=== PATIENT | female | born 1960 | race Caucasian/White ===

== ENCOUNTER 2018-08-20 00:33 | Outpatient (CLI) | payer BC, SELFPAY ==
--- NOTE | 2018-08-20 16:30 | DI.MAMMO_ITS ---
SYMPTOM/DIAGNOSIS: SCREENING, Z12.31 MAMMOGRAMS: Mammograms were interpreted according to the usual protocol including computer analysis with CAD system, tomosynthesis and C view imaging. Comparison is made with prior examinations. Breast density, Category C. No suspicious masses or microcalcifications are seen. There is no definite evidence of malignancy. IMPRESSION: Negative mammogram. Routine screening is recommended. Category 1. MQSA ASSESSMENT OF FINDINGS: Negative. Category 1. Patient will receive a letter notifying them of these results. Bi-RADS category C. The breasts are heterogeneously dense, which may obscure small masses.
== END 2018-08-20 00:53 ==
PROVIDERS: PCP Internal Medicine; Visit Provider Nurse Practitioner Family
DX: Z12.31 Encounter for screening mammogram for malignant neoplasm of breast (principal)
CPT/HCPCS: 77063; 77067

== ENCOUNTER 2019-07-23 10:16 | Outpatient (REF) | payer BC, SELFPAY ==
--- NOTE | 2019-07-23 10:00 | PAPFT_PTH ---
PATIENT: Otilia Mayen LOC: [facility] U#:[id number] AGE/SX: 58/F ROOM: RE07/23/[address]: JAZZ Chan : 1960 BED: DIS: 07/23/2019 SPEC #: [id number] RECD: 07/23/19 12:48 STATUS: JOHNBecki REQ #: [id number] ANDREA: 07/23/19 10:[address]: Anu Guzman DEPT: [facility] Cytology RECD BY: Virginia Meza ENTERED: 07/23/19 12:49 SP TYPE: PAPFT OTHR DR: Alan Franz Tissues: 1 - CX/ENDOCX FOR PAP SMEARS Procedures: PAP THIN PREP/UVM Screening HPV DNA PROBE Comments: [id number]
== END 2019-07-23 10:36 ==
LOC: LBN 10:16
PROVIDERS: PCP Internal Medicine; Visit Provider Nurse Practitioner Family
DX: Z12.4 Encounter for screening for malignant neoplasm of cervix (principal); Z11.51 Encounter for screening for human papillomavirus (HPV)
CPT/HCPCS: 88142; 87624

== ENCOUNTER 2020-10-15 02:04 | Outpatient (CLI) | payer BC, SELFPAY ==
--- NOTE | 2020-10-15 15:30 | DI.MAMMO_ITS ---
Exam(s) MAMMO SCREENING EXAM: MAMMO SCREENING CLINICAL HISTORY: screening TECHNIQUE: Bilateral full field digital CC and MLO mammographic images were obtained with 3D tomosyn thesis and utilizing computer aided detection (CAD). COMPARISON: Available for comparison. FINDINGS: Masses/Architectural Distortion: None seen. Microcalcifications: No suspicious pleomorphic-type are seen. Skin Thickening/Nipple Retraction: None. IMPRESSION: 1. No significant interval change with no specific features of malignancy noted. 2. Unless there is more urgent need, screening mammography is recommended, as per [employer] guidelines. BI-RADS Category 1 - Negative Breast Density - Category C - Heterogeneously dense Breast density category C or D implies that the patient has dense breast tissue. Dense breast tissue is very common and is not abnormal but dense breast tissue can make it harder to find cancer on a ma mmogram. Also, dense breast tissue may increase their breast cancer risk. This information about the result of the mammogram report was provided to the patient to raise their awareness. Use this report when you speak with the patient about their risks for breast cancer, which includes their family hist ory. At that time, you may recommend for more screening tests (Ultrasound or MRI) as they might be us eful based on their risk. A negative radiographic report should not delay biopsy if a dominant or clinically suspicious mass is present. Up to ten percent of cancers are not identified on mammography. A negative report may reinforce clinical impression. Adenosis and dense breasts may obscure an underlying neoplasm. False positive reports average 6 to 10%. Patient will receive a letter notifying them of these results.
== END 2020-10-15 02:24 ==
PROVIDERS: PCP Internal Medicine; Visit Provider Nurse Practitioner Family
DX: Z12.31 Encounter for screening mammogram for malignant neoplasm of breast (principal)
CPT/HCPCS: 77063; 77067

== ENCOUNTER → 2022-01-07 | Outpatient (CLI) | payer BC, SELFPAY ==
--- OUTSIDE RECORDS SUMMARY | 2022-01-07 00:02 | XMS_ITS | Encounter Summary ---
:1960 Author Organization [facility] Address [address] [place] [address] Care Team Providers Name Role Phone Anu Guzman ARTIFICIAL LEATHER CALENDER OPERATOR Primary Care Provider Reason for Visit Reason Comments Follow-up FBSE, H/O BCC Encounter Details Date Type Department Care Team Description 10/24/2018 Office Visit [facility] Lila Lambert, Hist ory of basal cell Dermatology - Main MD carcinoma (Primary [place] [address]) [address] [place] [address] [address] [place] [address] Social History Tobacco Use Types Packs/Day Years Used Date Never Smoker Smokeless Tobacco: Never Used Sex Assigned at Date Recorded Female 10/25/2021 12:58 EDT documented as of this encounter Progress Notes Lila Lambert MD, MD - 10/24/2018 1100 EDT DERMATOLOGY OUTPATIENT CLINIC NOTE Chief Complaint Patient presents with ??? Follow-up FBSE, H/O BCC Dermatologic History: 1. Infiltrative BCC, right lower eyelid, s/p Mohs 07/2011 with Paul Cervantes MD, with repair by Salome Gilliam MD 2. Benign Nevi 3. Moderately atypical nevus s/p bx 10/04/16 4. BCC right back, out with biopsy 10/04/16 SUBJECTIVE Ms. Mayen is a 58 y.o. female who presents for follow-up for a skin check. She has been doing well since her last visit. Nothing on the skin has been bleeding or changing. The patient does try to be reasonable about sun exposure. For full Medical, Surgical, Family, and Social histories, please see the History section of this encounter in the electronic chart which I have personally reviewed. For Review of Systems, Medications and Allergies, please see those sections of this encounter in theelectronic chart which I have also reviewed. She has a current medication list which includes the following prescription(s): multivitamins with minerals. She has No Known Allergies. OBJECTIVE VS: There were no vitals taken for this visit. Ms. Mayen is healthy, well developed, well-nourished and in no acute distress female sitting on the examination table with a normal affect. She is alert and oriented to person, place and time. She has Pritchard type II skin. Cutaneous full body examination including the hair, scalp, face, eyelids, lips, neck, chest, back, abdomen, all four extremities, hands, feet, digits and nails was performed. - On the back she has well healed scars - On the trunk and extremities the patient has very evenly pigmented peterson and medium brown macules and low papules with preserved network of pigmentation. IMPRESSION: 1. History of moderately atypical nevus of left mid back 2. History of basal cell carcinoma of right mid back and right lower eyelid, without evidence of recurrence 3. Benign appearing nevi PLAN: 1. Reassurance about the benign nature of the exam. We will follow the spots on the nose and cheeks closely. Removal if change. 2. The nature of skin cancers and sun-induced photo-aging was discussed. Sun avoidance, protective clothing, and the use of 30-SPF sunscreens is advised. The ABCDEs and ugly duckling rule of melanomascreening were reviewed with the patient. Patient was instructed to observe closely for any skin damage/changes, and call if such occurs. Otherwise, to follow-up in 1 year for repeat full-body skin exam. She will follow-up as outlined above or in the interim should concerns arise. Lila Lambert MD 10/24/2018 Ramandeep Flood - 10/24/2018 1100 EDT Review of Systems Constitutional: Negative for fatigue, fever and unexpected weight change. HENT: Negative for mouth sores. Eyes: Negative for pain. Respiratory: Negative for cough and shortness of breath. Cardiovascular: Negative for chest pain and palpitations. Gastrointestinal: Negative for abdominal pain, blood in stool, constipation, diarrhea, nausea and vomiting. Genitourinary: Negative for dysuria, frequency and hematuria. Musculoskeletal: Negative for myalgias, joint swelling, arthralgias and muscle stiffness in the morning. Skin: Negative for rash. Neurological: Negative for numbness and headaches. Endo/Heme/Allergies: Does not bruise/bleed easily. Psychiatric/Behavioral: Negative for sleep disturbance. The patient is not nervous/anxious. Ramandeep Harrell 10/24/2018 11:20 documented in this encounter Plan of Treatment Upcoming Encounters Date Type Specialty Care Team Description 10/28/2022 Office Visit Dermatology Bk Anton MD [address] [place] [address] [address] [place], [place] [address] (Wo rk) documented as of this encounter Visit Diagnoses Diagnosis History of basal cell carcinoma - Primar y Personal history of other malignant neop lasm of skin documented in this encounter Care Teams Registered Associate Relationship Specialty Start Date End Date Anu Guzman FNP PCP - General 01/19/[address] [place] [address] [place] [address] documented as of this encounter
--- OUTSIDE RECORDS SUMMARY | 2022-01-07 00:02 | XMS_ITS | Encounter Summary ---
:1960 Author Organization [facility] Address [address] [place] [address] Care Team Providers Name Role Phone Unavailable Primary Care Provider Unavailable Encounter Details Date Type Department Care Team Description 04/26/2006 Results Only [facility] - Clary German, Chr istopher, conversion DO [address] [address] [facility] [address] [place], [place] [id number] [place] [address] (Wo rk) Social History Tobacco Use Types Packs/Day Years Used Date Never Assessed Sex Assigned at Date Recorded Female 10/25/2021 12:58 EDT documented as of this encounter Plan of Treatment Upcoming Encounters Date Type Specialty Care Team Description 10/28/2022 Office Visit Dermatology Bk Anton MD [address] [facility], [facility] Leila, [address] [place], [place] [address] (Wo rk) documented as of this encounter Procedures Procedure Name Priority Date/Time Associated Diagnosis Comme nts SURGICAL PATHOLOGY Routine 04/26/2006 0:00 EST Re sults for this procedure are i n the results section. documented in this encounter Results SURGICAL PATHOLOGY (04/26/2006 0:00 EST) Pathology Report: SURGICAL PATHOLOGY REPORT [facility] Reports generated via electronic interface contain isamar ginal data; LAB however they are lacking the format of the original re port. Caution should be taken when reading/interpreting unfo rmatted reports. Name: ? JUANITA EDUARDO ? Accession #: ? [id number] ? : ? 1960 (Age: 45) ??F ? Collect Date: ? 04/26/2006 ? Location: ? [facility] ? Receive Date: ? 006 ? Provider: CLARA GERMAN DO Copy to: CELESTINO CONTRERAS MD ? Final Pathologic Diagnosis: ? Breast, right, ultrasound-guided needle core bi opsy: 1. ?Fibrocystic changes including: ? - Fibroadenomatoid nodule ? - Focal microcyst formation. - Dense interlobular fibrosis. Document reviewed and electronically signed by: Migdalia Cruz MD Report ??Date: 04/28/2006 15:41 By the signature above, the attending physician certif ies that he/she has personally conducted a gross and/or microscopic examin ation of the described specimens and rendered or confirmed the above diagnosi s. Specimen(s) Received: ? Ultrasound guided core biopsy right breast Clinical History: ? Mass by U/S 3 o'clock position Gross Description: ? Received in formalin labelled Eduardo and Rt breast bx are nine peterson-yellow linear soft tissu e fragments measuring 0.1 cm in diameter and ranging in length from 2.0 to 0.2 cm. ??The specimen is entirely submitted as (A1) to (A3). ??(Dr. Barlow-)/[facility] End of Report Specimen Performing Organization Address City/State/ZIP Code Phon e Number [facility] [address] [place] [address] SERVICES [facility] [address] [place] [address] documented in this encounter Visit Diagnoses Not on filedocumented in this encounter
--- OUTSIDE RECORDS SUMMARY | 2022-01-07 00:02 | XMS_ITS | Encounter Summary ---
:1960 Author Organization [facility] Address [address] [place] [address] Care Team Providers Name Role Phone Unavailable Primary Care Provider Unavailable Encounter Details Date Type Department Care Team Description 11/05/2001 Results Only [facility] - Carlos Boggs MD conversion [address] [place], [place] [address] Social History Tobacco Use Types Packs/Day Years Used Date Never Assessed Sex Assigned at Date Recorded Female 10/25/2021 12:58 EDT documented as of this encounter Plan of Treatment Upcoming Encounters Date Type Specialty Care Team Description 10/28/2022 Office Visit Dermatology Bk Anton MD [address] [facility], [facility], [address] [place], [place] [address] (Wo rk) documented as of this encounter Procedures Procedure Name Priority Date/Time Associated Diagnosis Comme nts CYTOPATHOLOGY Routine 11/05/2001 0:00 EDT Results for this procedure are i n the results section . documented in this encounter Results CYTOPATHOLOGY (11/05/2001 0:00 EDT) Pathology Report: CYTOPATHOLOGY REPORT [facility] Reports generated via electronic interface contain isamar ginal data; however they are lacking the format of the original re port. Caution should be taken when reading/interpreting unfo rmatted reports. Name: ? JUANITA EDUARDO ? Accession #: ? [id number] : ? 1960 (Age: 41) ??F ?Collect Date: ? 10/14 Location: ? [facility] ? Receive Date : ? 11/07/2001 Provider: ?CARLOS CONTRERAS MD Copy to: ? Specimen/Source: ?ThinPrep Pap Test, Cervix/ Endocervix Last Menstrual Period: ? Menstrual/ Status: ? Amenorrhea Hormonal/Contraceptive Status: ? Control Pills: Ortho Novum ? SPECIMEN ADEQUACY ? Satisfactory for Evaluation - transformation zone component present GENERAL CATEGORIZATION ? Negative for Intraepithelial Lesion or Malignan cy ? Document reviewed and electronically signed by: ? Amanda Jaime, ??SCT(ASCP) ? Report Date: ??11/09/2001 08:09 End of Report Specimen Performing Organization Address City/State/ZIP Code Phon e Number [facility] [address] [place] [address] SERVICES [facility] [address] [place] [address] documented in this encounter Visit Diagnoses Not on filedocumented in this encounter
--- OUTSIDE RECORDS SUMMARY | 2022-01-07 00:02 | XMS_ITS | Encounter Summary ---
:1960 Author Organization [facility] Address [address] [place] [address] Care Team Providers Name Role Phone Unavailable Primary Care Provider Unavailable Encounter Details Date Type Department Care Team Description 10/27/2003 Results Only [facility] - Carlos Boggs MD conversion [address] [place], [place] [address] Social History Tobacco Use Types Packs/Day Years Used Date Never Assessed Sex Assigned at Date Recorded Female 10/25/2021 12:58 EDT documented as of this encounter Plan of Treatment Upcoming Encounters Date Type Specialty Care Team Description 10/28/2022 Office Visit Dermatology Bk Anton MD 111 [facility], [facility], [address] [place], [place] [address] (Wo rk) documented as of this encounter Procedures Procedure Name Priority Date/Time Associated Diagnosis Comme nts CYTOPATHOLOGY Routine 10/27/2003 0:00 EDT Results for this procedure are i n the results section . documented in this encounter Results CYTOPATHOLOGY (10/27/2003 0:00 EDT) Pathology Report: CYTOPATHOLOGY REPORT [facility] Reports generated via electronic interface contain isamar ginal data; however they are lacking the format of the original re port. Caution should be taken when reading/interpreting unfo rmatted reports. Name: ? JUANTIA EDUARDO ? Accession #: ? [id number] : ? 1960 (Age: 43) ??F ?Collect Date: ? 10/13 Location: ? [facility] ? Receive Date : ? 10/29/2003 Provider: ?CARLOS CONTRERAS MD Copy to: ? Specimen/Source: ?ThinPrep Pap Test, Cervix/ Endocervix Last Menstrual Period: ? 07/16/03 ? SPECIMEN ADEQUACY ? Satisfactory for Evaluation - transformation zone component present GENERAL CATEGORIZATION ? Negative for Intraepithelial Lesion or Malignan cy ? Document reviewed and electronically signed by: ? Emily Rutherford, SCT(ASCP) ? Report Date: ??10/31/2003 10:00 End of Report Specimen Performing Organization Address City/State/ZIP Code Phon e Number [facility] [address] [place] [address] [facility] [address] [place] [address] documented in this encounter Visit Diagnoses Not on filedocumented in this encounter
--- OUTSIDE RECORDS SUMMARY | 2022-01-07 00:02 | XMS_ITS | Encounter Summary ---
:1960 Author Organization [facility] Address [address] [place] [address] Care Team Providers Name Role Phone Anu Guzman [facility] Primary Care Provider Encounter Details Date Type Department Care Team Description 03/18/2014 Results Only [facility] Terrance Guzman, EDITING CLERK Laboratory Services - [address] [facility] [facility] [address] [address] [place], [place] [id number] [phone] Social History Tobacco Use Types Packs/Day Years Used Date Never Smoker Sex Assigned at Date Recorded Female 10/25/2021 12:58 EDT documented as of this encounter Plan of Treatment Upcoming Encounters Date Type Specialty Care Team Description 10/28/2022 Office Visit Dermatology Bk Anton MD 111 [facility], [place] [facility], [address] [place], [place] [address] (Wo rk) documented as of this encounter Procedures Procedure Name Priority Date/Time Associated Diagnosis Comme nts PAP TEST- RESULT Routine 03/18/2014 0:00 EST Resu lts for this ONLY procedure are i n the results section. documented in this encounter Results PAP TEST- RESULT ONLY (03/18/2014 0:00 EST) Pathology Report: CYTOPATHOLOGY REPORT [facility] Reports generated via electronic interface contain isamar ginal data; SERVICES however they are lacking the format of the original re port. Caution should be taken when reading/interpreting unfo rmatted reports. Name: ? JUANITA MAYEN ? Accession #: ? [id number] : ? 1960 (Age: 53) ??F ?Collect Date: ? 08/2013 Location: ? [facility] ? Receive Date : ? 03/19/2014 Provider: ?ANU GUZMAN EDITING CLERK Copy to: ?YOANDY CARSON MD ? Specimen/Source: ? Pap Test, Cervix/Endocervix, ThinPrep Imaging System with manual evaluation Last Menstrual Period: ? 01/24/2014 ? SPECIMEN ADEQUACY ? Satisfactory for Evaluation - transformation zone component present GENERAL CATEGORIZATION ? Negative for Intraepithelial Lesion or Malignan cy ? Document reviewed and electronically signed by: ? PAO Olsen(ASCP) ? Report Date: ??03/25/2014 10:10 End of Report Specimen Performing Organization Address City/State/ZIP Code Phon e Number [facility] [address] [place] [address] SERVICES documented in this encounter Visit Diagnoses Not on filedocumented in this encounter Care Teams Receptionist Doctor'S Office Relationship Specialty Start Date End Date Anu Guzman EDITING CLERK PCP - General 01/19/[address] [place] [address] [place] [address] documented as of this encounter
--- OUTSIDE RECORDS SUMMARY | 2022-01-07 00:02 | XMS_ITS | Encounter Summary ---
:1960 Author Organization [facility] Address [address] [place] [address] Care Team Providers Name Role Phone Anu Guzman DENTAL BILLING SPECIALIST Primary Care Provider Reason for Visit Reason Comments Follow-up Skin lesions Encounter Details Date Type Department Care Team Description 10/27/2021 Office Visit [facility] Bk Anton Mul tiple nevi (Primary Dx); Dermatology - Main MD [place]; [address] History of nonmelanoma skin cancer [address] [place], [place] [phone] [place] [address] [place], [address] [place] [address] (Wo rk) Social History Tobacco Use Types Packs/Day Years Used Date Never Smoker Smokeless Tobacco: Never Used Sex Assigned at Date Recorded Female 10/25/2021 12:58 EDT documented as of this encounter Progress Notes Bk Anton MD - 10/27/2021 1045 EDT Derm Hx # BCC R lumbar, superior, shave exc 11/02 # BCC R lumbar, inferior, shave exc 11/02 # BCC right midback shave exc 09/28 # Infiltrative BCC, right lower eyelid, s/p Mohs 07/2011, # moderately atypical nevus 09/28 # nevi Last seen 11/02 S Follow-up (Skin lesions) O Examined face neck trunk both arms and legs Scattered benign appearing nevi and lentigines WHS at recent BCC sites R lumbar A/P # Nevi, reassure # lentigines, reassure rtc yr/prn Bk Anton MD documented in this encounter Plan of Treatment Upcoming Encounters Date Type Specialty Care Team Description 10/28/2022 Office Visit Dermatology Bk Anton MD 111 [facility], [facility], [address] [place], [place] [phone] (Wo rk) documented as of this encounter Visit Diagnoses Diagnosis Multiple nevi - Primary Benign neoplasm of skin, site unspecifie d Lentigines Other dyschromia History of nonmelanoma skin cancer Personal history of other malignant neop lasm of skin documented in this encounter Care Teams [place] Relationship Specialty Start Date End Date Anu Guzman FNP PCP - General 01/19/[address] [place] [address] [place] [address] documented as of this encounter
--- OUTSIDE RECORDS SUMMARY | 2022-01-07 00:02 | XMS_ITS | Encounter Summary ---
:1960 Author Organization [facility] Address [address] [place] [address] Care Team Providers Name Role Phone Anu Guzman VISUAL DESIGNER Primary Care Provider Reason for Visit Reason Onset Date Comments Appointment Related 10/04/2016 Encounter Details Date Type Department Care Team Description 10/04/2016 Telephone [facility] Tyrone Lambert MD Appointment Related Dermatology - [facility] [address] [facility] [facility] [address] [place] [address] [place], [place] [phone] (Wo rk) Social History Tobacco Use Types Packs/Day Years Used Date Never Smoker Smokeless Tobacco: Never Used Sex Assigned at Date Recorded Female 10/25/2021 12:58 EDT documented as of this encounter Miscellaneous Notes Telephone Encounter - Keshia Cage - 10/11/2016 0958 EDT Patient scheduled for 11/08/2016 at 11:30am elephone Encounter - Huong Richey - 10/04/2016 1503 EDT Needs follow up with Dr. Lambert in the next couple of months. Re check back Huong Richey 10/04/2016 15:04 documented in this encounter Plan of Treatment Upcoming Encounters Date Type Specialty Care Team Description 10/28/2022 Office Visit Dermatology Bk Anton MD 111 [facility], [facility], [address] [place], [place] [address] (Wo rk) documented as of this encounter Visit Diagnoses Not on filedocumented in this encounter Care Teams Manufacturing Maintenance Technician Relationship Specialty Start Date End Date Anu Guzman FNP PCP - General 01/19/[address] [place] [address] [place] [address] documented as of this encounter
--- OUTSIDE RECORDS SUMMARY | 2022-01-07 00:02 | XMS_ITS | Encounter Summary ---
:1960 Author Organization [facility] Address [address] [place] [address] Care Team Providers Name Role Phone Unknown, Provider Primary Care Provider Reason for Visit Reason Comments Basal Cell Carcinoma MOHS- Right Lower Eye lid Encounter Details Date Type Department Care Team Description 07/22/2011 Office Visit [facility] Denise Cervantes Dermatology - [facility] Paul Hernandez MD carcinoma, eyelid [place] 10 DANIE DIAZ (Primary Dx) [id number] [place] [address] [phone] (Wo rk) Social History Tobacco Use Types Packs/Day Years Used Date Never Assessed Sex Assigned at Date Recorded Female 10/25/2021 12:58 EDT documented as of this encounter Last Filed Vital Signs Vital Sign Reading Time Taken Comments Blood Pressure 108/72 07/22/2011 0750 EST Pulse 60 07/22/2011 0750 EST Temperature 36.9 ??C (98.5 ??F) 07/22/2011 0750 EST Respiratory Rate - - Oxygen Saturation - - Inhaled Oxygen Concentration - - Weight - - Height - - Body Mass Index - - documented in this encounter Patient Instructions Patient InstructionsPaul Cervantes MD - 07/22/2011 8:38 EST MOHS SURGERY UNIT [facility] FOLLOWING YOUR SKIN SURGERY ACTIVITY: ?? If you have sutures (stitches), avoid strenuous activities until your sutures are removed ?? Walking is an excellent light activity during recovery. Running and weightlifting are not. ?? If your surgery was on your head or neck, elevate your head with pillows when you lie down, and do not bend over to tow picker objects or tie your shoes. . BATHING: ?? Keep the area of your surgery dry for the first 24 hours. ?? After 24 hours, you may shower. Remove your bandage, and replace it after the shower. If you bathe in a tub, the bath should be brief. DISCOMFORT: ?? Do not use aspirin, products containing aspirin, ibuprofen (AdvilTM or MotrinTM), or naproxen (AleveTM) for five days after your surgery, unless approved by your physician. ?? To relieve discomfort, you may take acetaminophen (for example, TylenolTM or Extra-Strength TylenolTM) as directed. If your doctor has given you a prescription for Tylenol with codeine or Percocet, you may use this as directed. BLEEDING, BRUISING, AND SWELLING: ?? It is normal for your wound to ooze a small amount of blood and stain the dressing. ?? Expect bruising and swelling in the area of your surgery to be the most noticeable 48 to 72 hoursafter surgery. Bruising and swelling usually begin to lessen 4 to 5 days after surgery. ?? You may minimize swelling by sleeping with your head elevated on several pillows. ?? If the swelling worsens rapidly or becomes increasingly tender, contact your physician. ?? If your wound bleeds enough that the blood heavily soaks through to the outside of your bandage, do the following 1) Remove the bandage 2) If the site is slowly bleeding, but not gushing blood, then place a clean moist gauze on the wound and hold continuous pressure for 15 to 20 minutes. 3) Remove the gauze carefully, and if the bleeding has stopped, redress the wound with the supplies given to you at the time of your surgery. 4) If the bleeding does not stop or if the bleeding is severe, renew pressure and contact your physician for further instructions. If there is substantial bleeding that does not resolve with pressure, please proceed to the nearest emergency room or call 911 for assistance. INFECTION: ?? It is normal for your wound to be slightly sore and pink. ?? If the area becomes increasingly tender, red or warm, or if you develop fever and chills, then contact your physician. DIETARY RESTRICTIONS: ?? If your surgery involved your lips or mouth, avoid hot liquids and foods for the first two to three hours after surgery. Eat soft foods and be careful when brushing your teeth until sutures are removed. ?? If you are a smoker try to limit your smoking as much as possible around the time of surgery. DAILY WOUND CARE: ?? Always wash your hands with soap and water before your daily wound care. ?? Gently remove your bandage 24 hours after surgery. Then change the dressing each day or whenever it becomes wet, according to these instructions: 1) Gently clean the area with cotton swabs dipped in warm soapy water. 2) As you clean the area, remove all crusty material. If you cannot easily remove the crust, soak the area with wet gauze for 15 to 20 minutes. Do not let thick crusts or scabs form. Your wound will heal faster if you keep it clean and moist. 3) After cleaning the wound, pat the area dry with clean gauze or cotton-tipped swabs. 4) Next, use a clean cotton swab to apply bacitracin ointment or petroleum jelly. 5) Cover the area with nonstick gauze (Telfa). Secure the dressing with tape. WHEN TO CONTACT YOUR PHYSICAN: ?? Your wound continues to bleed after you have applied firm pressure for 20 minutes. ?? Acetaminophen has not relieved your discomfort. ?? Your wound becomes increasingly sore, tender, red, or warm. ?? Your surgery site rapidly swells. CONTACT INFORMATION: To reach the it consultant physician: During office hours: 8:00 am - 5:00 PM Monday through Monday Call: [phone] Ask to speak with a surgery nurse After hours: Call [phone] for the MOHS surgeon it consultant. WEEKENDS and HOLIDAYS call: [phone] for the Mohs surgeon on-call documented in this encounter Progress Notes SUPERVISOR OPEN HEARTH STOCKYARD, SCAN 2 - 07/28/2011 1327 EDT Paul Kasper MD - 07/22/2011 0838 EST Images from the original note were not included. MOHS SURGERY - POSTOP SUMMARY Otilia Mayen is a 50 y.o. year old female who underwent Mohs surgery today 07/22/2011. The following is a summary of the operative findings: Lesion 1 infiltrative basal cell carcinoma Location right lower eyelid Size Preop (cm) 0.5 x 0.4 cm Size Postop (cm) 1.2 x 1.0 cm Stages 3 Depth of Excision through muscle and conjunctiva Repair referral to Salome Gilliam MD Ms. Mayen was discharged from the operative suite in good condition. She was carefully instructed in postoperative wound care both verbally and in writing. The patient will return for follow up with Paul Cervantes MD in 6 months, sooner as needed. Note: None Paul Cervantes MD - 07/22/2011 0838 EST MOHS OPERATIVE REPORT PATIENT NAME: Otilia Mayen : 1960 DATE OF SERVICE: 07/22/2011 SURGEON: Paul Cervantes MD CANDY SUPERVISOR: Pari Jacobs MA; Josselin Gambino PA-C CASE # [id number] PREOPERATIVE DIAGNOSIS: infiltrative basal cell carcinoma POSTOPERATIVE DIAGNOSIS: Mohs micrographic surgery Location of Lesion: right lower eyelid Preoperative Lesion Size: 0.5 x 0.4 cm Preoperative Procedure: Mohs microscopically-controlled fresh tissue excision Indications: The patient presents with a infiltrative basal cell carcinoma. Because of the histologic and clinical nature of the lesion, as well as its location, the need to achieve the highest cure rate while providing maximum tissue preservation warranted tumor extirpation via microscopically-controlled excision using the Mohs fresh tissue technique. Alternate therapeutic options were discussed on several occasions prior to surgery. After informed consent was obtained and appropriate instruction was provided, the patient underwent tumor extirpation by the Mohs fresh tissue technique as follows: PROCEDURE - INITIAL STAGE: Patient position: supine Anesthesia: 0.5% bupivicaine hydrochloride with epinephrine 1:100,000 local infiltration & topical tetracaine drops Prep: Povodine Iodine The patient was brought to the operative suite. The lesion was identified and was prepped in a sterile fashion. The area was infiltrated with lidocaine/epinephrine to achieve complete anesthesia and toaugment hemostasis. An initial beveled excision was performed to the muscle & conjunctiva with a scalpel blade and tissue scissors as indicated. A hash was created in the specimen and within the adjacent epidermis for marking purposes. The Mohs specimen was excised in a sharp manner, and carefullyplaced in proper orientation on the surgical tray. Hemostasis of the operative wound was obtained with careful spot electrocoagulation. A sterile non-adherent dressing was applied to the operative wound. The Mohs tissue specimen was carefully transferred to the lab where the tissue was divided, and color inked for orientation. These sections were mapped and handed personally to the pathological technician for frozen sectioning. The tissue was embedded so that the deep and surface margins lay in the same plane, andsections were made through this plane. All specimens were then evaluated histologically by me. Stage 1 findings: Wound Depth muscle & conjunctiva Sections Created 3 Number of Sections Containing Tumor 3 ADDITIONAL STAGES: The operative site was reidentified and anesthesia was supplemented with further lidocaine/epinephrine as needed. Further beveled incisions of lateral and deep margins were performed with a number 15 scalpel blade at all sites where tumor was mapped from the previous stage. Hashes were created in the specimen and within the adjacent epidermis for marking purposes as indicated. The Mohs specimens wereexcised in a sharp manner, and carefully placed in proper orientation on the surgical tray. Hemostasis of the operative wound was obtained with careful spot electrocoagulation. A sterile non-adherent dressing was applied to the operative wound. Stage 2 findings: Wound Depth through muscle Sections Created 2 Number of Sections Containing Tumor 1 Stage 3 findings: Wound Depth through muscle Sections Created 1 Number of Sections Containing Tumor 0 With the patient clear of microscopic tumor, surgery was considered complete. Postoperative Wound Size: 1.2 x 1.0 cm Final Diagnosis: infiltrative basal cell carcinoma Final Procedure: Mohs micrographic surgery Blood Loss: minimal Operative Time: 90 minutes Complications: none: Note: Referral to Salome Gilliam MD for repair of operative defect Paul Cervantes MD, TYESHA [employer] [facility] Division of Dermatology [facility] documented in this encounter Miscellaneous Notes Scanned Note-Null - SUPERVISOR OPEN HEARTH STOCKYARD, SCAN 2 - 07/28/2011 1236 EDT documented in this encounter Plan of Treatment Upcoming Encounters Date Type Specialty Care Team Description 10/28/2022 Office Visit Dermatology Bk Anton MD [address] [facility], [facility], [address] [place], [place] [address] (Wo rk) documented as of this encounter Visit Diagnoses Diagnosis Basal cell carcinoma, eyelid - Primary Basal cell carcinoma of eyelid, includin g canthus documented in this encounter Care Teams Ground Wirer Relationship Specialty Start Date End Date Unknown, Provider, PCP - General 03/12/10 01/18/12 documented as of this encounter
--- OUTSIDE RECORDS SUMMARY | 2022-01-07 00:02 | XMS_ITS | Encounter Summary ---
:1960 Author Organization [facility] Address [address] [place] [address] Care Team Providers Name Role Phone Unavailable Primary Care Provider Unavailable Encounter Details Date Type Department Care Team Description 10/28/2004 Results Only [facility] - Carlos Boggs MD conversion [address] [place], [place] [id number] Social History Tobacco Use Types Packs/Day Years Used Date Never Assessed Sex Assigned at Date Recorded Female 10/25/2021 12:58 EDT documented as of this encounter Plan of Treatment Upcoming Encounters Date Type Specialty Care Team Description 10/28/2022 Office Visit Dermatology Bk Anton MD [address] [facility], [facility], [address] [place], [place] [address] (Wo rk) documented as of this encounter Procedures Procedure Name Priority Date/Time Associated Diagnosis Comme nts CYTOPATHOLOGY Routine 10/28/2004 0:00 EDT Results for this procedure are i n the results section . documented in this encounter Results CYTOPATHOLOGY (10/28/2004 0:00 EDT) Pathology Report: CYTOPATHOLOGY REPORT [facility] Reports generated via electronic interface contain isamar ginal data; however they are lacking the format of the original re port. Caution should be taken when reading/interpreting unfo rmatted reports. Name: ? JUANITA EDUARDO ? Accession #: ? [id number] : ? 1960 (Age: 44) ??F ?Collect Date: ? 10/13 Location: ? [facility] ? Receive Date : ? 11/01/2004 Provider: ?CARLOS CONTRERAS MD Copy to: ? Specimen/Source: ?ThinPrep Pap Test, Cervix/ Endocervix Last Menstrual Period: ? 10/14/04 ? SPECIMEN ADEQUACY ? Satisfactory for Evaluation - transformation zone component present GENERAL CATEGORIZATION ? Negative for Intraepithelial Lesion or Malignan cy ? Document reviewed and electronically signed by: ? Emily Rutherford, SCT(ASCP) ? Report Date: ??11/04/2004 16:00 End of Report Specimen Performing Organization Address City/State/ZIP Code Phon e Number [facility] [address] [place] [address] SERVICES [facility] [address] [place] [address] documented in this encounter Visit Diagnoses Not on filedocumented in this encounter
--- OUTSIDE RECORDS SUMMARY | 2022-01-07 00:02 | XMS_ITS | Encounter Summary ---
:1960 Author Organization [facility] Address [address] [place] [address] Care Team Providers Name Role Phone Terrance Guzmann Delores BREAST BUFFER Primary Care Provider Reason for Visit Reason Comments Follow-up FBSE Encounter Details Date Type Department Care Team Description 09/02/2014 Office Visit [facility] Lila Lambert, Nate orjagruti of basal cell carcinoma (Primary Dx); Dermatology - Main [address] [address] [address] [place] [address] Social History Tobacco Use Types Packs/Day Years Used Date Never Smoker Smokeless Tobacco: Never Used Sex Assigned at Date Recorded Female 10/25/2021 12:58 EDT documented as of this encounter Discharge Diagnoses Diagnosis V10.83 PERS HX SKIN MALIGNANCY NEC[ICD-9 -CM] 216.3 BENIGN FITO SKIN FACE NEC[ICD-9-CM] documented in this encounter Patient Instructions Patient InstructionsKey Byers MD - 09/02/2014 11:21 EDT SUN PROTECTION AND SUN SCREENS Most of a person's lifetime sun exposure occurs before the age of 18!! Skin cancer can be prevented! Protect yourself and your child from the sun! Avoiding the sun is the best protection! IF YOUR CHILD IS GETTING A SUNTAN DESPITE USING SUNSCREEN, THEY ARE STILL GETTING TOO MUCH SUN! YOU WILL NEED TO USE COVER-UP CLOTHING AND KEEP THEM OUT OF THE SUN! Repeated and prolonged exposure to sunlight greatly increases your risk of all types of skin cancer.In addition, chronic sun exposure is the major cause of wrinkles, spotty, and unhealthy appearing skin. It???s important to have a healthy and active lifestyle and we encourage you to continue this. However, some common sense guidelines will help to keep your skin and eyes safe. ?? Avoid the hot mid-day sun. Try to schedule your outdoor activities for senior solutions engineer or early evening. ?? Make clothing a regular part of protection. Keep your shirt on - wear long sleeves and a wide brimmed hat. ?? Be especially careful when on the water, snow or sand as sunlight is reflected upwards from thesesurfaces. ?? Don???t forget your eyes and lips! Wear sunglasses- Sun exposure increases your risk for cataracts. Wear lip balm with an SPF. ?? Make sure your children practice good sun protection. Early sun damage increases their risk of developing skin cancer. ?? Wear a sunscreen. We recommend using a sunscreen with both UVA and UVB protection and a SPF of atleast 30. If you sunburn more easily or are in more intense sun, you will need a higher SPF. A ???waterproof?? sunscreen is usually good for about 2 hours, even if you???re swimming. A sunscreen should be reapplied every 2 hours and after swimming. Remember to put sunscreen on your ears and lips. There are many lip balms available with sunscreen. For more information about sun protection, skin cancer, and all skin topics, visit: www.skincancer.org and www.aad.org Sunscreens: Sunlight is made up of different wavelengths, some of which we can see as the various colors of therainbow, or ???visible?? light. UVA and UVB are invisible wavelengths, which penetrate into the skin and in excess amounts, cause injury. When the injury is severe, skin cells and become inflamed and we see sunburn. UVB causes sunburn more quickly than UVA and most sunscreens are targeted towardsthis wavelength. Tanning while wearing sunscreen may mean that primarily UVA light is reaching the skin. This is the same UVA light that is used in tanning beds and is responsible for causing wrinkles,brown spots and possibly melanoma. For this reason, we recommend that you don???t use tanning beds and that you use sunscreen with both UVA and UVB protection. Most sunscreen ingredients are good at blocking UVB light. The only ingredients that also do a goodjob blocking UVA light are listed below. Make sure your sunscreen contains one of these ingredients.CAUTION: in some people Parasol may cause staining of white clothing. ?? Parasol (avobenzone) ?? Zinc Oxide ?? Titanium Oxide Some recommended brands: ?? Blue Lizard ?? Coppertone ?? Neutrogena ?? Bull Frog Good ???everyday?? moisturizer for the face: ?? Tizo daily moisturizer with SPF ?? Alix DAVIS daily moisturizer with SPF ?? Oil of Olay Complete Sun Protection ?? Cetaphil daily facial moisturizer ?? Neutrogena daily facial moisturizer Recommended resources for sun protective clothing and hats: ?? www.PromoteSocial ?? Www.AdMoment.LocalEats ?? For sensitive skin, look for sunscreens that contain: Zinc Oxide & Titanium Oxide. These are often labeled baby or sensitive. documented in this encounter Progress Notes Key Byers MD - 09/02/2014 1121 EDT DERMATOLOGY OUTPATIENT CLINIC NOTE Chief Complaint Patient presents with ??? Follow-up FBSE Dermatologic History: Infiltrative BCC, right lower eyelid, s/p Mohs 07/2011 with Paul Cervantes MD, with repair by Salome Gilliam MD History of Present Illness: Ms. Mayen is a 54 y.o. female who presents for a skin check. She was last seen approximately 18 months ago. She has no specific concerns today. Her eyelid has healed well and she denies any trouble with dry eye or tearing. She is very active outdoors, especially in the summer time. She uses sunscreen regularly. Her health has otherwise been good since her last exam. The patient denies other new or changing lesions, and has no other cutaneous concerns today. Please see this encounter in the electronic chart which I have personally reviewed for full medical,surgical, family, and social histories, review of systems, medications, and allergies. Objective: Physical Exam: The patient is an alert, pleasant, interactive 54 y.o.-year-old female sitting comfortably on the examination table. She has a fair skin phenotype. Complete cutaneous examination including the scalp, face, ears, neck, shoulders, axillae, upper extremities, hands, chest, abdomen, back, buttocks, lower extremities, feet, and nails is performed. Notable findings include the following: well healed scar with loss of eyelashes on the right lower eyelid; scattered on the face, upper back, and arms, there are approximately one dozen 3 to 7 mm pink to light brown fleshy papules. Assessment Diagnoses Associated with Visit: Encounter Diagnoses Name Primary? History of basal cell carcinoma Yes ??? Multiple nevi History of infiltrative BCC, right lower eyelid, s/p Mohs, without evidence of local recurrence. Multiple benign nevi on face, back, and arms. Plan: -Discussed benign exam. -Handouts on sun protection were provided to the patient. -Reviewed the importance of sun avoidance, sun protection, and self skin examination for the prevention and early detection of skin cancer. ABCDE of melanoma was reviewed. The nature of skin cancers and photo-aging was discussed. The patient will follow up in one year, or sooner should any new problems or concerns arise. Key Byers MD 09/02/2014 12:58 Attestation Statement: I saw and examined the patient with the resident/fellow. I agree with the findings and plan of care documented in the resident's/fellow's note. Lila Lambert MD 09/05/2014 Martir Mayers IV - 09/02/2014 1108 EDT Review of Systems Constitutional: Negative for fever, fatigue and unexpected weight change. HENT: Negative for mouth sores. Eyes: Negative for pain. Respiratory: Negative for cough and shortness of breath. Cardiovascular: Negative for chest pain and palpitations. Gastrointestinal: Negative for nausea, vomiting, abdominal pain, diarrhea, constipation and blood instool. Genitourinary: Negative for dysuria, frequency and hematuria. Musculoskeletal: Negative for myalgias, joint swelling, arthralgias and muscle stiffness in the morning. Skin: Negative for rash. Neurological: Negative for numbness and headaches. Endo/Heme/Allergies: Does not bruise/bleed easily. Psychiatric/Behavioral: Negative for sleep disturbance. The patient is not nervous/anxious. documented in this encounter Plan of Treatment Upcoming Encounters Date Type Specialty Care Team Description 10/28/2022 Office Visit Dermatology Bk Anton MD [address] [facility], [facility], [address] [place], [place] [address] (Wo rk) documented as of this encounter Visit Diagnoses Diagnosis History of basal cell carcinoma - Primar y Personal history of other malignant neop lasm of skin Multiple nevi Benign neoplasm of skin, site unspecifie d documented in this encounter Care Teams Miner Operator Relationship Specialty Start Date End Date Anu Guzman FNP PCP - General 01/19/[address] [place] [address] [place] [address] documented as of this encounter
--- OUTSIDE RECORDS SUMMARY | 2022-01-07 00:02 | XMS_ITS | Encounter Summary ---
:1960 Author Organization [facility] Address [address] [place] [address] Care Team Providers Name Role Phone Anu Guzman ESOL INSTRUCTOR Primary Care Provider Reason for Visit Reason Onset Date Comments Other 09/11/2018 Encounter Details Date Type Department Care Team Description 09/11/2018 Telephone [facility] Tyrone Lambert MD Other Dermatology - Main [place] [address] [facility] [address] [place], [place] [id number] [place] [address] [phone] (Wo rk) Social History Tobacco Use Types Packs/Day Years Used Date Never Smoker Smokeless Tobacco: Never Used Sex Assigned at Date Recorded Female 10/25/2021 12:58 EDT documented as of this encounter Miscellaneous Notes Telephone Encounter - Ramandeep Harrell - 09/13/2018 1513 EDT We will see patient on 10/02/18 like she scheduled. Ramandeep Harrell 09/13/2018 15:13 elephone Encounter - Keshia Marinelli - 09/11/2018 1408 EDT Patient states she had a new lesion pop up on her back and she was wondering if Dr. Lambert thinks she should come in before this. She was requesting to email her a picture of the spot if possible. Keshia Marinelli 09/11/2018 14:09 documented in this encounter Plan of Treatment Upcoming Encounters Date Type Specialty Care Team Description 10/28/2022 Office Visit Dermatology Bk Anton MD 111 [facility], [facility], [address] [place], [place] [address] (Wo rk) documented as of this encounter Visit Diagnoses Not on filedocumented in this encounter Care Teams Home Health Cna Relationship Specialty Start Date End Date Anu Guzman FNP PCP - General 01/19/[address] [place] [address] [place] [phone] documented as of this encounter
--- OUTSIDE RECORDS SUMMARY | 2022-01-07 00:02 | XMS_ITS | Encounter Summary ---
:1960 Author Organization [facility] Address [address] [place] [address] Care Team Providers Name Role Phone Unavailable Primary Care Provider Unavailable Encounter Details Date Type Department Care Team Description 10/28/2002 Results Only [facility] - Carlos Boggs MD conversion [address], [place] [id number] Social History Tobacco Use Types Packs/Day Years Used Date Never Assessed Sex Assigned at Date Recorded Female 10/25/2021 12:58 EDT documented as of this encounter Plan of Treatment Upcoming Encounters Date Type Specialty Care Team Description 10/28/2022 Office Visit Dermatology Bk Anton MD [address] [facility], [facility], [address] [place], [place] [address] (Wo rk) documented as of this encounter Procedures Procedure Name Priority Date/Time Associated Diagnosis Comme nts CYTOPATHOLOGY Routine 10/28/2002 0:00 EDT Results for this procedure are i n the results section . documented in this encounter Results CYTOPATHOLOGY (10/28/2002 0:00 EDT) Pathology Report: CYTOPATHOLOGY REPORT [facility] Reports generated via electronic interface contain isamar ginal data; however they are lacking the format of the original re port. Caution should be taken when reading/interpreting unfo rmatted reports. Name: ? JUANITA EDUARDO ? Accession #: ? [id number] : ? 1960 (Age: 42) ??F ?Collect Date: ? 10/13 Location: ? [facility] ? Receive Date : ? 10/29/2002 Provider: ?CARLOS CONTRERAS MD Copy to: ? Specimen/Source: ?ThinPrep Pap Test, Cervix/ Endocervix Last Menstrual Period: ? N/A Menstrual/ Status: ? Amenorrhea Hormonal/Contraceptive Status: ? Control Pills ? SPECIMEN ADEQUACY ? Satisfactory for Evaluation - transformation zone component present GENERAL CATEGORIZATION ? Negative for Intraepithelial Lesion or Malignan cy ? Document reviewed and electronically signed by: ? PAO Olsen(ASCP) ? Report Date: ??10/31/2002 13:46 End of Report Specimen Performing Organization Address City/State/ZIP Code Phon e Number [facility] [address] [place] [address] SERVICES [facility] [address] [place] [address] documented in this encounter Visit Diagnoses Not on filedocumented in this encounter
--- OUTSIDE RECORDS SUMMARY | 2022-01-07 00:02 | XMS_ITS | Encounter Summary ---
:1960 Author Organization [facility] Address [address] [place] [address] Care Team Providers Name Role Phone Unavailable Primary Care Provider Unavailable Encounter Details Date Type Department Care Team Description 03/07/2008 Before [facility] - Anu Guzman, Converted Visit Maple conversion TAX PREPARER (Maple) [address] [facility] [address] [facility] [place] [address] [place], [place] [phone] (Wo rk) Social History Tobacco Use Types Packs/Day Years Used Date Never Assessed Sex Assigned at Date Recorded Female 10/25/2021 12:58 EDT documented as of this encounter Plan of Treatment Upcoming Encounters Date Type Specialty Care Team Description 10/28/2022 Office Visit Dermatology Bk Anton MD [address] [facility], [facility], [facility] [address] [place], [place] [phone] (Wo rk) documented as of this encounter Procedures Procedure Name Priority Date/Time Associated Diagnosis Comme nts CYTOPATHOLOGY Routine 03/07/2008 0:00 EDT Results for this procedure are i n the results section . documented in this encounter Results CYTOPATHOLOGY (03/07/2008 0:00 EDT) Pathology Report: CYTOPATHOLOGY REPORT ? [facility] ? LAB Reports generated via electr onic interface contain original data; ? however they are lacking the format of the original report. ? Caution should be taken when reading/interpreting unformatted reports. ? Name: ? JUANITA EDUARDO ? Accession #: ? [id number] ? : ? 1960 (Age: 47) ??F ?Collect Date: ? 03/07/2008 ? Location: ? [facility] ? Receive Date: ? 03/10/2008 ? Provider: ?ANU HAYG OOD TAX PREPARER ? Copy to: ? Specimen/Source: ? Pap Test, Cervix/Endocervix, ThinPrep Imaging System ? with manual evaluation ? Last Menstrual Period: ? 10/14/08 ? Other: ? HPVA - HPV testing requested if ASC-US on the current ThinPrep Pap test. ? SPECIMEN ADEQUACY ? Satisfactory for Eval uation ? - transformation zone compon ent present ? GENERAL CATEGORIZATION ? Negative for Intraepi thelial Lesion or Malignancy ? Document reviewed and electr onically signed by: ? Chayito F. Colasacco, S CT(ASCP) ? Report Date: ??10/30/ 2008 13:35 ? End of Report ? Specimen Performing Organization Address City/State/ZIP Code Phon e Number [facility] [address] [place] [address] SERVICES [facility] [address] [place] [address] documented in this encounter Visit Diagnoses Not on filedocumented in this encounter
--- OUTSIDE RECORDS SUMMARY | 2022-01-07 00:02 | XMS_ITS | Clinical Summary ---
:1960 Author Organization [facility] Address [address] [place] [address] Care Team Providers Name Role Phone Terrance Guzmanrebekah Zapata [facility] Primary Care Provider Allergies No known active allergies Medications Medication Sig Dispensed Refills Start Date End Date Status Multivitamins with Take 1 Tab by 0 Active Minerals tablet tablet mouth daily. Active Problems Problem Noted Date History of basal cell carcinoma 07/22/2011 Overview: Right lower eyelid; Mohs Surgery 07/2011 Encounters Date Type Specialty Care Team Description 10/27/2021 Office Visit Dermatology Bk Anton MD Multip le nevi (Primary Dx); Lentigines; History of nonm elanoma skin cancer from Last 3 Months Immunizations Name Administration Dates Next Due Covid-19 Ad26 Vaccine (RUPERT COVID-19) PF 0.5 ml IM 2020 (18 yrs+) Covid-19 mRNA Vaccine (MODERNA COVID-19) PF 0.5 ml IM 2020 (12 yrs+) Social History Tobacco Use Types Packs/Day Years Used Date Never Smoker Smokeless Tobacco: Never Used Sex Assigned at Date Recorded Female 10/25/2021 12:58 EDT Last Filed Vital Signs Vital Sign Reading Time Taken Comments Blood Pressure 108/72 07/22/2011 0750 EST Pulse 60 07/22/2011 0750 EST Temperature 36.9 ??C (98.5 ??F) 07/22/2011 0750 EST Respiratory Rate - - Oxygen Saturation - - Inhaled Oxygen Concentration - - Weight - - Height - - Body Mass Index - - Plan of Treatment Upcoming Encounters Date Type Specialty Care Team Description 10/28/2022 Office Visit Dermatology Bk Anton MD [address] [facility], [facility], [address] [place], [place] [address] (Wo rk) Health Maintenance Due Date Last Done Comments Hepatitis C Screen 1960 COVID-19 Vaccine (3 - Booster for Rupert 07/12/20212020, 08/12/2020 series) Insurance Payer Benefit Plan / Subscriber ID Effective Dates Phone Addre ss Type Group BCBS P [facility] [id number] 2019-Present [address] [place] [address] [phone] (Work) AquilinoOtilia zapata Personal/Family Self [address] (Home) [place], [place] [phone] (Work) FaheemOtilia Personal/Family Self [address] (Home) [place], [place] [phone] (Work) AquilinoOtilia zapata Personal/Family Self [address] (Home) [place], [place] [phone] (Work) FaheemOtilia Personal/Family Self [address] (Home) [place], [place] [phone] (Work) FaheemOtilia Personal/Family Self [address] (Home) [place], [place] [phone] (Work) FaheemOtilia Timo Personal/Family Self [address] (Home) [place] [phone] (Work) Otilia Mayen Personal/Family Self [address] (Home) [place] [phone] (Work) Advance Directives For more information, please contact: [phone] Documents on File Type Date Recorded Patient Delivery Recruiter Explanati on Advance Directives and Living Will Power of Electric Sign Wirer Care Teams [employer] Relationship Specialty Start Date End Date Anu Guzman FNP PCP - General 01/19/[address] [place] [address] [place] [address]
--- OUTSIDE RECORDS SUMMARY | 2022-01-07 00:02 | XMS_ITS | Encounter Summary ---
:1960 Author Organization [facility] Address [address] [place] [address] Care Team Providers Name Role Phone Anu Guzman CASUAL SHOE INSPECTOR Primary Care Provider Reason for Visit Reason Comments Skin Exam FBSE; hx NMSC Encounter Details Date Type Department Care Team Description 09/14/2016 Office Visit [facility] Giselle Lambert Neop lasm of uncertain Dermatology - Main MD behavior of skin [address] (Primary Dx) [address] [place] [address] [address] [place] [address] Social History Tobacco Use Types Packs/Day Years Used Date Never Smoker Smokeless Tobacco: Never Used Sex Assigned at Date Recorded Female 10/25/2021 12:58 EDT documented as of this encounter Discharge Diagnoses Diagnosis D48.5 Neoplasm of uncertain behavior of skin-D48.5[ICD-10-CM] Z85.828 Personal history of other malign ant neoplasm of skin-Z85.828[ICD-10-CM] documented in this encounter Patient Instructions Patient InstructionsGiselle Lambert MD - 09/14/2016 14:15 EDT DERMATOLOGY WOUND CARE INSTRUCTIONS FOR SKIN BIOPSY The DRESSING/BANDAID should remain in place for 24 hours. You may shower or bathe after 24 hours; remove the bandage and replace it after the shower. DISCOMFORT: Extra-Strength Tylenol, as directed by assembler aircraft power plant, usually relieves any pain you may have. BLEEDING: You may notice some blood on the edges of the dressing the first day and this is NORMAL. If the bleeding soaks through the dressing, remove the dressing, and apply firm, steady pressure with a moist clean wash cloth for fifteen minutes. If the bleeding stops, redress the wound, if not, call our office at . ACTIVITY: You may resume normal activity in 1 day unless instructed otherwise. WOUND CARE: ?? Wash hands with soap and water before changing the dressing. ?? Change the dressing daily and when it becomes wet. Clean the wound daily with mild soap and water. You may gently loosen any crusts with a cotton swab.The wound may be slightly tender and may bleed a small amount. A small amount of discharge is normal. Apply a thin layer of sterile petroleum jelly over the wound. Cover the wound with a Telfa (non-stick) dressing or bandage. It is important to keep the wound covered. CONTACT THE OFFICE IF YOU EXPERIENCE: ?? increased redness ?? warmth to touch ?? increased pain ?? drainage with a foul odor ?? rapid swelling of the wound ?? fever or chills Please call our office or . documented in this encounter Discharge Disposition Disposition Code Departure Means Destination Auto Discharge documented in this encounter Progress Notes Huong Richey - 10/14/2016 0919 EDT Patient is aware of biopsy results. Huong Richey 10/14/2016 9:19 iselle Reyes MD - 10/04/2016 1787 EDT Spoke to patient. Please schedule for follow up in a few months to recheck. BCC out with the biopsy.Will recheck left midback vs small reshave. Spoke to Surg path and they will issue an addendum. Giselle Lambert MD [facility] - 09/14/2016 4455 EDT Dermatology Outpatient Visit Note Chief Complaint Patient presents with ??? Skin Exam FBSE; hx NMSC Dermatologic History: 1. Infiltrative BCC, right lower eyelid, s/p Mohs 07/2011 with Paul Cervantes MD, with repair by Salome Gilliam MD 2. Benign Nevi Last Dermatology office visit: August 2014 SUBJECTIVE Ms. Mayen is a 56 y.o. female who presents for follow up for FBSE. She has no lesions of particular concern today. She has been taking care of her MIL, who is dying. She is otherwise in good health and has no other cutaneous concerns today. She denies any other new, changing, bleeding, tender, or non- healing skin lesions today. For full Medical, Surgical, Family, and Social [...] visit. Ms. Mayen is healthy, well developed, well-nourished, in no acute distress, alert and interactive female sitting on the examination table with a normal affect. She is alert and oriented to person, placeand time. She has Pritchard type II skin. Cutaneous full body examination including the hair, scalp, face, eyelids, lips, neck, chest, back, abdomen, all four extremities, hands, feet, digits and nails was performed.The examination was normal with the addition of the following comments: - right upper back two toned smudged 5 mm papule - left midback brown smudged 3 mm irregular papule - right arm with brown 5mm low papule - trunk, extremities: scattered 4-8 mm medium-brown and pink-brown symmetric macules and papules - left cheek: 4 mm dome-shaped telangiectatic papule - right lower eyelid: well-healed scar without recurrence of basal cell carcinoma ASSESSMENT 1. Neoplasm of uncertain behavior of right upper back: Concerning for atypical nevus versus melanomavs other 2. Neoplasm of the left back ?DN vs MM 3. Neoplasm of the right arm ? DN vs other 2. Benign appearing but clinically atypical Nevi, including likely intradermal nevus of left cheek 3. History of basal cell carcinoma of right lower eyelid, no evidence of recurrence PLAN 1. Recommended biopsy of the lesion on the back X 2 and arm given the concern for malignancy. The patient agrees with this plan. Advised the patient on the risks of biopsy, including pain, infection, bleeding and scar formation. Will call with biopsy results when available, and make further treatment r ecommendations based on the results. 2. Explained that though the patient does have many nevi, the rest are not concerning today and do not warrant biopsy at this point. We explained the patient should continue to perform self skin exams,and notify the clinic if one of the lesions is changing, as this may prompt further clinical evaluation. The patient understands and agrees. 3. The nature of sun-induced photo-aging and skin cancers is discussed. Sun avoidance, protective clothing, and the use of 30-SPF sunscreens is advised. Observe closely for skin damage/changes, and call if such occurs. SHAVE BIOPSY PROCEDURE NOTE PATIENT INFORMATION: Juanita Mayen [id number] 1960 DATE OF PROCEDURE: 09/15/2016 SURGEON: Giselle Lambert MD CANE FLUME FEEDING MACHINE OPERATOR: none PROCEDURE NOTE Specimen A Procedure: Tangential Shave Indication: Diagnostic Biopsy Site: right upper back Anesthesia: 1% lidocaine with epinephrine 1:100,000 local infiltration Prep: Alcohol The lesion was prepped as above and locally anesthetized. The specimen was removed by tangential shave using a Dermablade??. Hemostasis was achieved with pressure and/or aluminum chloride. The wound was cleansed with alcohol and a sterile dressing was applied over Petrolatum ointment. Verbal and written wound care instructions were given.The specimen was submitted to pathology for histological evaluation. Specimen B Procedure: Tangential Shave Indication: Diagnostic Biopsy Site: left midback Anesthesia: 1% lidocaine with epinephrine 1:100,000 local infiltration Prep: Alcohol The lesion was prepped as above and locally anesthetized. The specimen was removed by tangential shave using a Dermablade??. Hemostasis was achieved with pressure and/or aluminum chloride. The wound was cleansed with alcohol and a sterile dressing was applied over Petrolatum ointment. Verbal and written wound care instructions were given.The specimen was submitted to pathology for histological evaluation. Specimen C Procedure: Tangential Shave Indication: Diagnostic Biopsy Site: right arm Anesthesia: 1% lidocaine with epinephrine 1:100,000 local infiltration Prep: Alcohol The lesion was prepped as above and locally anesthetized. The specimen was removed by tangential shave using a Dermablade??. Hemostasis was achieved with pressure and/or aluminum chloride. The wound was cleansed with alcohol and a sterile dressing was applied over Petrolatum ointment. Verbal and written wound care instructions were given.The specimen was submitted to pathology for histological evaluation. The indication, risks, benefits and alternatives to this procedure were discussed in detail with thepatient and all questions were answered. Informed consent was obtained in writing. NOTE: Giselle Lambert MD 09/15/2016 9:27 Keshia Bazzi - 09/14/2016 1415 EDT Review of Systems Constitutional: Negative for [...] sleep disturbance. The patient is not nervous/anxious. Keshia Mueller 09/14/2016 14:18 documented in this encounter Plan of Treatment Upcoming Encounters Date Type Specialty Care Team Description 10/28/2022 Office Visit Dermatology Bk Anton MD [address] [facility], [facility], [facility] [address] [place], [place] [address] ( rk) Scheduled Orders Name Type Priority Associated Diagnoses Order S chedule SURGICAL PATHOLOGY- Pathology Routine Neoplasm of uncertain Ordered: 09/14/2016 ORDER ONLY behavior of skin documented as of this encounter Procedures Procedure Name Priority Date/Time Associated Diagnosis Comme nts SURGICAL PATHOLOGY Routine 09/14/2016 20:44 Resul ts for this EDT procedure are i n the results section. documented in this encounter Results SURGICAL PATHOLOGY (09/14/2016 20:44 EDT) Pathology Report: SURGICAL PATHOLOGY REPORT [facility] Reports generated via electronic interface contain isamar ginal data; SERVICES however they are lacking the format of the original re port. Caution should be taken when reading/interpreting unfo rmatted reports. Name: ? JUANITA MAYEN ? Accession #: ? [id number] ? : ? 1960 (Age: [age]) ??F ?Collect Date: ? 2016 ? Location: ? [facility] ? Receive Date: ? 09/14/2016 ? Provider: GISELLE LAMBERT MD Copy to: ? Addendum ? Date Ordered: ? 10/04/2016 ? Status: Sig jorden Out ? Date Complete: ? 10/04/2016 ? By: Elvira Walters ? Date Reported: ? 10/04/2016 ? Addendum Diagnosis A. ??SKIN OF BACK, RIGHT UPPER, SHAVE BIOPSY: - Basal cell carcinoma, nodular type (pigmented). - BASAL CELL CARCINOMA does not extend to edges of shave biopsy specimen in the plane of the sections examined. ??SEE COMMENT. B. ??SKIN OF BACK, LEFT MID, SHAVE BIOPSY: - Melanocytic nevus, compound type, with unusual archi tectural features and moderate cytologic atypia. - Nevus present focally at peripheral tissue edge. - Incidental melanocytic nevus, intradermal type. C. ??SKIN OF ARM, RIGHT UPPER, SHAVE BIOPSY: - Melanocytic nevus, compoun d type, with unusual architectural features and mild cytologic atypia. - Nevus does not extend to edges of sha ve biopsy specimen in the plane of the sections examined. Addendum Comment This addendum is being issue d at the request of Dr. Giselle Lambert to correct the secondary diagnosis for specimen (A). ??The diag nosis is amended as above and otherwise remains unchanged. ??(Dr. Reyna)/tmg ?? Document reviewed and electronically signed by: ? BRITANY REYNA MD ? Report date: 10/04/2016 By the signature above, the attending physician certif ies that he/she has personally conducted a gross and/or microscopic examin ation of the described specimens and rendered or confirmed the above diagnosi s. Final Report Final Pathologic Diagnosis: A. ??SKIN OF BACK, RIGHT UPPER, SHAVE BIOPSY: - Basal cell carcinoma, nodular type (pigmented). - Nevus does not extend to edges of sha ve biopsy specimen in the plane of the sections examined. B. ??SKIN OF BACK, LEFT MID, SHAVE BIOPSY: - Melanocytic nevus, compound type, with unusual archi tectural features and moderate cytologic atypia. - Nevus present focally at peripheral tissue edge. - Incidental melanocytic nevus, intradermal type. C. ??SKIN OF ARM, RIGHT UPPER, SHAVE BIOPSY: - Melanocytic nevus, compoun d type, with unusual architectural features and mild cytologic atypia. - Nevus does not extend to edges of sha ve biopsy specimen in the plane of the sections examined. Comment: The biopsy from left mid back (B) consists predomina ntly of a compound melanocytic nevus with a mod erate degree of architectural disorder and cytologic atypia. ??There is an eccentric adjacent intradermal m elanocytic nevus that appears to be incidental. (Dr. Reyna)/mpl ? Microscopic Description: A. ??There are buds of atypical basal cells emanating from the epidermis and forming islands within the d ermis. ??The basal cells have dark nuclei and scant cytoplasm. ??The nuclei at t he periphery of the buds and islands are arranged in a palisaded fashion. ??Some the islands and buds are a ssociated with melanin pigment within individual melanocytes and melanophages . ?? The islands are from the adjacent fibromyxoid stroma by clef ts. ?? B. ??The epidermis is hyperplastic with elongate and anastomosing rete ridges. There is a compound prolifer ation of melanocytes with both epidermal and dermal components. ??The junctional melanocytes are arranged in nests and as individual cells. ??The nests predominate but vary to moderate degree in size, shape, and spacing. ??The nests are located between and the sides of rete ridges, in addition to at the tips of the ridges. ??Nests b ridge rete ridges. ??Focally, individual melanocytes are prominent and unevenly spaced but show no confluent growth or well-developed upward migration. ??The melanocytes are enlarged and have ill-defined cytoplasm containing melanin pigment. ??The nuclei show a moderate degree of size and shape variation with occas ional large, irregular forms. ??The dermal componen t consists of nests and cords of similar melanocytes that show microfilm processor maturation with descent. ??There is papillary dermal fibroplasia. ??There is sepa rate, but adjacent, dermal melanocytic proliferation consisting of small melanocytes showing neurotization. ? C. ??The epidermis is hyperplastic with elongate and anastomosing rete ridges. There is a circumscribed pro liferation of melanocytes with epidermal and dermal components. ??The intraepidermal melanocytes are arran ged in nests and as individual cells in a lentiginous patter n. ??The nests predominate and vary in size, shape, and spacing. ??Some of the nests bridge b etween rete ridges. Although the individual umang nocytes are unevenly spaced in some areas, they show no tendency toward confluent growth or u pward migration. ??The melanocytes are enlarged and show a mild deg ree of nuclear size and shape variation. ??The dermal component consists of nests and cords of similar melanocytes that show microfilm processor maturation with descent. ??T here is papillary dermal fibroplasia. (Dr. Reyna)/mpl ? Gross Description: A. ?Received in formalin labelled with proper p atient identification (initials P, T) and A. right upper back is a shave b iopsy of peterson-white hairbearing skin (1.2 x 1.0 x 0.1 cm). There is a cent ral circular peterson-white pearly macule that measures 0.6 x 0.5 cm. The margin is inked blue. The specimen is sectioned into five sections and submitted in A1 an d A2. B. ?Received in formalin labelled with proper p atient identification (initials P, T) and B. left mid back is a shave biopsy of peterson-white skin (0.9 x 0.8 x 0.1 cm). There is a central ovoid peterson-brown mottled macule that measures 0.6 x 0.4 cm. The margin is inked blue. The specimen i s quadrisected and submitted in B1 and B2. C. ?Received in formalin labelled with proper p atient identification (initials P, T) and C. right upper arm is a shave bi opsy of peterson-white skin (1.0 x 0.7 x 0.1 cm). There is a central peterson-brown mottled macule with slightly irregular borders that measures 0.6 x 0.4 cm. The paddy in is inked blue. The specimen is trisected and submitted in C1. Cher Nashdevin 09/15/2016 9:29 AM ? Clinical History: Changing papules; A. ? DN vs MM vs SK; B, C. ? DN vs M M; clinical diagnosis code: ??D48.5 ? Specimens Received: A: Skin, shave/punch biopsy B: Skin, shave/punch biopsy C: Skin, shave/punch biopsy Document reviewed and electronically signed by: ? BRITANY REYNA MD ? Report ??Date: 09/16/2016 16:55 By the signature above, the attending physician certif ies that he/she has personally conducted a gross and/or microscopic examin ation of the described specimens and rendered or confirmed the above diagnosi s. End of Report Specimen Performing Organization Address City/State/ZIP Code Phon e Number [facility] [address] [place] [address] SERVICES documented in this encounter Visit Diagnoses Diagnosis Neoplasm of uncertain behavior of skin - Primary documented in this encounter Care Teams Floors Buffer Relationship Specialty Start Date End Date Anu Guzman FNP PCP - General 01/19/[address] [place] [address] [place] [address] documented as of this encounter
--- OUTSIDE RECORDS SUMMARY | 2022-01-07 00:02 | XMS_ITS | Encounter Summary ---
:1960 Author Organization [facility] Address [address] [place] [address] Care Team Providers Name Role Phone Anu Guzman PRESIDENT PRACTICING UROLOGIST Primary Care Provider Reason for Visit Reason Comments Follow-up Skin exam. History of BCC. Encounter Details Date Type Department Care Team Description 09/07/2015 Office Visit [facility] Giselle Lambert Neop lasm of uncertain behavior of skin (Primary Dx); Dermatology - Main Multiple nevi; [address] History of basal cell carcin jazmyn [address] [place] [address] [address] [place] [address] Social History Tobacco Use Types Packs/Day Years Used Date Never Smoker Smokeless Tobacco: Never Used Sex Assigned at Date Recorded Female 10/25/2021 12:58 EDT documented as of this encounter Discharge Diagnoses Diagnosis D48.5 Neoplasm of uncertain behavior of skin-D48.5[ICD-10-CM] D23.9 Other benign neoplasm of skin, uns pecified-D23.9[ICD-10-CM] Z85.828 Personal history of other malign ant neoplasm of skin-Z85.828[ICD-10-CM] documented in this encounter Patient Instructions Patient InstructionsKeila Bowles MD - 09/07/2015 14:28 EDT DERMATOLOGY WOUND CARE INSTRUCTIONS FOR SKIN BIOPSY The DRESSING/BANDAID should remain in place for 24 hours. You may shower or bathe after 24 hours; remove the bandage and replace it after the shower. DISCOMFORT: Extra-Strength Tylenol, as directed by emergency room tech, usually relieves any pain you may have. [...] chills Please call our office or . SUN PROTECTION AND SUN SCREENS IF YOU OR YOUR CHILD IS GETTING A SUNTAN DESPITE USING SUNSCREEN, THEY ARE STILL GETTING TOO MUCH SUN! YOU WILL NEED TO USE COVER-UP CLOTHING AND KEEP THEM OUT OF THE SUN! Most of a person's lifetime sun exposure occurs before the age of 18. Skin cancer can be prevented. Protect yourself and your child from the sun. Avoiding the sun is the best protection. Repeated and prolonged exposure to sunlight greatly increases your risk of all types of skin cancer.In addition, chronic sun exposure is the major cause of wrinkles, spotty, and unhealthy appearing skin. It???s important to have a healthy and active lifestyle and we encourage you to continue this. However, some common sense guidelines will help to keep your skin safe. ?? Avoid the hot mid-day sun (10 AM to 2 PM). Try to schedule your outdoor activities for coach tour driver or early evening. ?? Make clothing a regular part of protection. Keep your shirt on - wear long sleeves and a wide brimmed hat. ?? Be especially careful when on the water, snow, or sand, as sunlight is reflected upwards from these surfaces. ?? Don???t forget your eyes and lips! Wear sunglasses - sun exposure increases your risk for cataracts. Wear [...] is responsible for causing wrinkles,brown spots and melanoma. For this reason, we recommend that you don???t use tanning beds and that you use sunscreen with both UVA and UVB protection. Some recommended sunscreen brands: --THERE ARE MANY GOOD SUNSCREEN BRANDS. MAKE SURE YOUR SUNSCREEN IS LABELED BROAD SPECTRUM AND HASAN SPF 30 OR HIGHER. --For sensitive skin, babies, lupus, dermatomyositis, and porphyria cutanea tarda, look for sunscreens that contain Zinc Oxide & Titanium Dioxide. These are often labeled baby or sensitive. They will apply whiter but are more gentle. Some specific sunscreen brands: ?? Blue Lizard ?? Coppertone ?? Neutrogena ?? Bull Frog ?? Banana Boat ?? Aveeno ?? Tizo ?? Alix DAVIS Recommended resources for sun protective clothing and hats: ?? http://www.[employer].indeni ?? http://www.[employer]rek[employer].indeni ?? http://www.[facility].com documented in this encounter Progress Notes Huong Richey - 09/22/2015 0933 EDT Quick Note: Patient is aware of biopsy results. Huong Richey 09/22/2015 9:33 iselle Reyes MD - 09/22/2015 0842 EDT Quick Note: Called and left message for patient. Moderately atypical but it is out. Giselle Lambert MD 09/22/2015 Keila Salazar MD - 09/07/2015 1415 EDT Images from the original note were not included. Dermatology Outpatient Visit Note Chief Complaint Patient presents with ??? Follow-up Skin exam. History of BCC. Dermatologic History: 1. Infiltrative BCC, right lower eyelid, s/p Mohs 07/2011 with Paul Cervantes MD, with repair by Salome Gilliam MD 2. Benign Nevi Last Dermatology office visit: August 2014 SUBJECTIVE Ms. Mayen is a 55 y.o. female who presents for follow up for FBSE. She has no lesions of particular concern today. She reports that lesion on her left cheek has been present for at least 10 years and does not hurt or bleed. She is otherwise in good health and has no other cutaneous concerns today. She denies any other new, changing, bleeding, tender, or non-healing skin lesions today. For full Medical, Surgical, [...] of the following comments: - right upper medial back: 0.9 x 0.5 mm pink and brown unevenly-pigmented, irregularly bordered low papule - trunk, extremities: scattered 4-8 mm medium-brown and pink-brown symmetric macules and papules - left cheek: 4 mm dome-shaped telangiectatic papule - right lower eyelid: well-healed scar without recurrence of basal cell carcinoma ASSESSMENT 1. Neoplasm of uncertain behavior of right upper medial back: Concerning for atypical nevus versus melanoma vs other 2. Benign Nevi, including likely intradermal nevus of left cheek 3. History of basal cell carcinoma of right lower eyelid, no evidence of recurrence PLAN 1. Recommended biopsy of the lesion on the right upper medial back given the concern for malignancy.The patient agrees with this plan. Advised the patient on the risks of biopsy, including pain, infection, bleeding and scar formation. Will call with biopsy results when available, and make further treatment recommendations based on the results. 2. Explained that [...] skin damage/changes, and call if such occurs. She will f/u in 1 year or in the interim should problems arise. SHAVE BIOPSY PATIENT INFORMATION: Juanita Mayen : MRN: [id number] SURGEON: MD Giselle Arceo MD The indication, risks, benefits and alternatives to this procedure were discussed in detail with thepatient and all questions were answered. Informed consent was obtained in writing. PROCEDURE NOTE Specimen A Procedure: Tangential Shave Indication: Diagnostic Biopsy Site: right, upper and medial back Anesthesia: 1% lidocaine with epinephrine 1:100,000 [...] was submitted to pathology for histological evaluation. Keial Bowles MD 09/07/2015 14:15 Attestation Statement: I saw and examined the patient with the resident/fellow. I agree with the findings and plan of care documented in the resident's/fellow's note. I was present for the entire procedure. Giselle Lambert MD 09/14/2015 NENisreen zurita - 09/07/2015 1408 EDT Review of Systems Constitutional: Negative for [...] sleep disturbance. The patient is not nervous/anxious. Nisreen Earl 14:08 09/07/2015 documented in this encounter Plan of Treatment Upcoming Encounters Date Type Specialty Care Team Description 10/28/2022 Office Visit Dermatology Bk Anton MD [address] [facility], [facility], [address] [place], [place] [address] (Wo rk) Scheduled Orders Name Type Priority Associated Diagnoses Order S chedule SURGICAL PATHOLOGY- Pathology Routine Neoplasm of uncertain Ordered: 09/07/2015 ORDER ONLY behavior of skin documented as of this encounter Procedures Procedure Name Priority Date/Time Associated Diagnosis Comme nts SURGICAL PATHOLOGY Routine 09/07/2015 18:52 Resul ts for this EDT procedure are i n the results section. documented in this encounter Results SURGICAL PATHOLOGY (09/07/2015 18:52 EDT) Pathology SURGICAL PATHOLOGY REPORT [facility] Report: Reports generated via electronic interface conta in original data; [facility] however they are lacking the format of the original re port. SERVICES Caution should be taken when reading/interpreting unfo rmatted reports. Name: ? JUANITA MAYEN ? Accession #: ? [id number] ? : ? 1960 (Age: [age]) ??F ? Collect Date: ? 09/07/2015 ? Location: ? [facility] ? Receive Date: ? 6 ? Provider: GISELLE LAMBERT MD Copy to: KEILA BOWLES MD ? Final Pathologic Diagnosis: SKIN OF BACK, RIGHT MEDIAL UPPER, SHAVE BIOPSY: - Melanocytic nevus, compound type, with unusual archi tectural features and moderate cytologic atypia. - Lesion does not extend to biopsy edges in the plane of sections examined. - Lesion measures approximately 0.8 mm to the biopsy base. - Lesion measures approximately 1.0 mm to the nearest peripheral edge. Comment: This case has been shown in intradepartm ental consultation. ??(Dr. Washington)/[facility] Microscopic Description: The epidermis is hyperplasti c with elongate and anastomosing rete ridges. ??There is a compound proliferation of melanocytes with both e pidermal and dermal components. ??The junctional melanocytes are [...] and cords of similar melanocytes that show sand screener maturation with descent. ??There is papillary dermal fibroplasia. ??Alligator-1 (Melan -A) ALK PHOS (A103, [place]) does not show evidence of well-developed confluent growth or upward migration. ??Alligator-1 is performed on blocks 1 and 2. ??Deeper levels have been examined on blocks 1 and 2. ??(Dr. Washington)/[facility] ? NOTE: ??One or more of the reagents used in immunoperoxidase testing in this case may not have been cleared or approved by the U.S. Food and Drug Administration (FDA). ??The FDA has determined that such clearance or approval is not necessary. ??These tests are used for clinical purposes. ??They should not be regarded as investigational or for research. ??These r eagents' performance characteristics have been determined by [facility]. ??This laboratory is certified under the Clinical Laboratory Improvement Amendments of 1988 (CLIA-88) as qualified to per form high complexity clinical laboratory testing. ?? Document reviewed and electronically signed by: GISELLE WASHINGTON MD Report ??Date: 09/14/2015 08:16 By the signature above, the attending physician certif ies that he/she has personally conducted a gross and/or microscopic examin ation of the described specimens and rendered or confirmed the above diagnosi s. Specimen(s) Received: Right upper medial back Clinical History: 0.9 x 0.5 mm brown and pink unevenly pigmented, irregu lar low papules; ? atypical nevus vs MM vs other; clinical diagnosis code : ??D48.5 Gross Description: ? Received in formalin labelled with proper patient identification (initials P, T) and right upper media l back is a 1.2 x 1.0 x up to 0.2 cm irregular skin shave. The central skin surf grady shows an irregular mottled pale to darker brown macule, 0.6 x 0.5 cm. The ma rgin is inked. Sectioned and entirely submitted in 1 and 2. Pepper Buenrostro 09/08/2015 9:28 AM End of Report Specimen Performing Organization Address City/State/ZIP Code Phon e Number [facility] [address] [place] [id number] SERVICES documented in this encounter Visit Diagnoses Diagnosis Neoplasm of uncertain behavior of skin - Primary Multiple nevi Benign neoplasm of skin, site unspecifie d History of basal cell carcinoma Personal history of other malignant neop lasm of skin documented in this encounter Historical Medications This list may reflect changes made after this encounter. Medication Sig Dispensed Refills Start Date End Date Multivitamins with Minerals Take 1 Tab by mouth 0 tablet tablet daily. added in this encounter Care Teams Medical Case Manager Relationship Specialty Start Date End Date Anu Guzman FNP PCP - General 01/19/[address] [place] [address] [place] [address] documented as of this encounter
--- OUTSIDE RECORDS SUMMARY | 2022-01-07 00:02 | XMS_ITS | Encounter Summary ---
:1960 Author Organization [facility] Address [address] [place] [address] Care Team Providers Name Role Phone MeganAnu welch ROOF PROMENADE TILE SETTER Primary Care Provider Encounter Details Date Type Department Care Team Description 01/17/2020 Lab Requisition [facility] Outr Resulting Lab, Pathology & Laboratory Provider [facility] [address], [place] [address] Social History Tobacco Use Types Packs/Day Years Used Date Never Smoker Smokeless Tobacco: Never Used Sex Assigned at Date Recorded Female 10/25/2021 12:58 EDT documented as of this encounter Plan of Treatment Upcoming Encounters Date Type Specialty Care Team Description 10/28/2022 Office Visit Dermatology Bk Anton MD [address] [facility], [place] [address], [address] [place], [place] [address] (Wo rk) documented as of this encounter Procedures Procedure Name Priority Date/Time Associated Comments Diagnosis DO NOT ORDER Today 01/17/2020 8:46 EDT Results for this STANDALONE - BROAD procedure are in COVID TEST the results section. COVID-19 TESTING Routine 01/17/2020 8:46 EDT Resu lts for this procedure are i n the results section. documented in this encounter Results DO NOT ORDER STANDALONE - BROAD COVID TEST (01/17/2020 8:46 EDT) COVID-19 rt-PCR NEGATIVE Negative [facility] Result Comment: LABORATORY 2019-novel Coronavirus (2019 -nCoV) not detected by the qRT-PCR assay. Consider testing for other respiratory viruses or re-collecting for 2019-nCoV testing. Note: Optimum timing for peak viral levels du ring infections caused by 20 -nCoV have not been determined. Collection of multiple specimens from the same patient may be necessary to detect the virus. Limitations Positive results are indicat kae of active infection with SARS-CoV-2 but do not rule out bacterial infection or co-infection with other viruses. The agent detected may not be the definite cause of diseas e. In addition, detection of viral RNA may not indicate the presence of infectious virus or that SARS-CoV-2 is the causative agent for clinical symptoms. Negative results do not prec lude SARS-CoV-2 infection and should not be used as the sole basis for patient management decisions. Negative results must be combined with clinical observations, patient his tory, and epidemiological in formation. False negative results may also occur if amplification inhibitors are present in the specimen or if inadequate numbers of organisms are present in the specimen. Op timum specimen types and janeth ing for peak viral levels during infections caused by SARS-CoV-2 have not been fully determined. Collection of multiple specimens (types and time points) from the same patient may be necessary to detect the virus. The test was validated for u with upper respiratory specimens obtained via nasopharyngeal or oropharyngeal swabs in VTM, UTM, M4, M5, M6, saline, and MTM media. The performance of this test has not be en established for other spe cimens. Specimens collected using other FDA recommended Specimen Collection Materials listed in the FDA COVID-19 Diagnostic Technologies communication (August 08, 2019) are pr ocessed with the caveat that they were not all validated for use with this test and the result must be interpreted in this context. Furthermore, a false negative results may occur if a specimen is improperly collected, transported or handled. If the virus mutates in the RT-PCR target region, SARS-CoV-2 may not be detected or may be detected less predictably. Inhibitors or other types of interference may produce a false negative result. An interference study evaluating the effect of common cold medications was not performed. This test is not FDA-cleared but its performance characteristics were established by our CLIA-certified, CAP-accredited, high complexity laboratory in accordance with CLIA regulations, [employer] [facility] an Pathologists (CAP) guidel adriana (Aug 01, 2019), and FDA guidance (Jul 13, 2019). This test is only for use un raymond the Food and Drug Administration's Emergency Use Authorization. Specimen Swab - Entire nasopharynx (body structur e) Performing Organization Address City/State/ZIP Code Phon e Number [facility] [place] COVID-19 TESTING (01/17/2020 8:46 EDT) COVID-19 rt-PCR NEGATIVE Negative [facility] Result Comment: LABORATORY 2019-novel Coronavirus (2019 -nCoV) not detected by the qRT-PCR assay. Consider testing for other respiratory viruses or re-collecting for 2019-nCoV testing. Note: Optimum timing for peak viral levels du ring infections caused by 20 -nCoV have not been determined. Collection of multiple specimens from the same patient may be necessary to detect the virus. Limitations Positive results are indicat kae of active infection with SARS-CoV-2 but do not rule out bacterial infection or co-infection with other viruses. The agent detected may not be the definite cause of diseas e. In addition, detection of viral RNA may not indicate the presence of infectious virus or that SARS-CoV-2 is the causative agent for clinical symptoms. Negative results do not prec lude SARS-CoV-2 infection and should not be used as the sole basis for patient management decisions. Negative results must be combined with clinical observations, patient his tory, and epidemiological in formation. False negative results may also occur if amplification inhibitors are present in the specimen or if inadequate numbers of organisms are present in the specimen. Op timum specimen types and janeth ing for peak viral levels during infections caused by SARS-CoV-2 have not been fully determined. Collection of multiple specimens (types and time points) from the same patient may be necessary to detect the virus. The test was validated for u se with upper respiratory specimens obtained via nasopharyngeal or oropharyngeal swabs in VTM, UTM, M4, M5, M6, saline, and MTM media. The performance of this test has not be en established for other spe cimens. Specimens collected using other FDA recommended Specimen Collection Materials listed in the FDA COVID-19 Diagnostic Technologies communication (August 08, 2019) are pr ocessed with the caveat that they were not all validated for use with this test and the result must be interpreted in this context. Furthermore, a false negative results may occur if a specimen is improperly collected, transported or handled. If the virus mutates in the RT-PCR target region, SARS-CoV-2 may not be detected or may be detected less predictably. Inhibitors or other types of interference may produce a false negative result. An interference study evaluating the effect of common cold medications was not performed. This test is not FDA-cleared but its performance characteristics were established by our CLIA-certified, CAP-accredited, high complexity laboratory in accordance with CLIA regulations, [employer] an Path[employer] (CAP) guidel adriana (Aug 01, 2019), and FDA guidance (Jul 13, 2019). This test is only for use un raymond the Food and Drug Administration's Emergency Use Authorization. Performing Lab [facility] LABORATORY SERVICES Specimen Swab Performing Organization Address City/State/ZIP Code Phon e Number [facility] [address] [place] [address] [facility] [place], [place] documented in this encounter Visit Diagnoses Not on filedocumented in this encounter Care Teams Rack Carrier Relationship Specialty Start Date End Date Anu Guzman FNP PCP - General 01/19/[address] [place] [address] [place] [address] documented as of this encounter
--- OUTSIDE RECORDS SUMMARY | 2022-01-07 00:02 | XMS_ITS | Encounter Summary ---
:1960 Author Organization [facility] Address [address] [place] [address] Care Team Providers Name Role Phone Unavailable Primary Care Provider Unavailable Encounter Details Date Type Department Care Team Description 01/12/2006 Results Only [facility] - Carlos Boggs MD conversion [address] [place], [place] [address] Social History Tobacco Use Types Packs/Day Years Used Date Never Assessed Sex Assigned at Date Recorded Female 10/25/2021 12:58 EDT documented as of this encounter Plan of Treatment Upcoming Encounters Date Type Specialty Care Team Description 10/28/2022 Office Visit Dermatology Bk Anton MD [address] [facility], [facility], [address] [place], [place] [address] (Wo rk) documented as of this encounter Procedures Procedure Name Priority Date/Time Associated Diagnosis Comme nts CYTOPATHOLOGY Routine 01/12/2006 0:00 EDT Results for this procedure are i n the results section . documented in this encounter Results CYTOPATHOLOGY (01/12/2006 0:00 EDT) Pathology Report: CYTOPATHOLOGY REPORT [facility] Reports generated via electronic interface contain isamar ginal data; however they are lacking the format of the original re port. Caution should be taken when reading/interpreting unfo rmatted reports. Name: ? JUANITA EDUARDO ? Accession #: ? [id number] : ? 1960 (Age: 45) ??F ?Collect Date: ? 12/15 Location: ? [facility] ? Receive Date : ? 01/13/2006 Provider: ?CARLOS CONTRERAS MD Copy to: ? Specimen/Source: ? ThinPrep Pap Test, Cervix/Endocervix, processed on hike ThinPrep Imaging System, with manual evaluation Last Menstrual Period: ? r ? SPECIMEN ADEQUACY ? Satisfactory for Evaluation - transformation zone component present GENERAL CATEGORIZATION ? Negative for Intraepithelial Lesion or Malignan cy ? Document reviewed and electronically signed by: ? PAO Ng(ASCP) ? Report Date: ??01/17/2006 15:35 End of Report Specimen Performing Organization Address City/State/ZIP Code Phon e Number [facility] [address] [place] [address] SERVICES [facility] [address] [place] [address] documented in this encounter Visit Diagnoses Not on filedocumented in this encounter
--- OUTSIDE RECORDS SUMMARY | 2022-01-07 00:02 | XMS_ITS | Encounter Summary ---
:1960 Author Organization [facility] Address [address] [place] [address] Care Team Providers Name Role Phone Anu Guzman PRESS CLIPPER Primary Care Provider Reason for Visit Reason Comments Follow-up Skin lesions, lesion of conc london on left thigh Encounter Details Date Type Department Care Team Description 10/27/[address] 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); Dermatology - Main Multiple nevi; [place] [address] [place] [address] History of nonmelanoma skin cancer [address] [place], [place] [id number] [place] [address] [facility] Level [address] [place] [address] (Wo rk) Social History Tobacco Use Types Packs/Day Years Used Date Never Smoker Smokeless Tobacco: Never Used Sex Assigned at Date Recorded Female 10/25/2021 12:58 EDT documented as of this encounter Patient Instructions Patient InstructionsVandana Gaston MA - 10/27/2020 10:30 EDT DERMATOLOGY WOUND CARE INSTRUCTIONS FOR SKIN BIOPSY The DRESSING/BANDAID should remain in place for 24 hours. You may shower or bathe after 24 hours; remove the bandage and replace it after the shower. DISCOMFORT: Extra-Strength Tylenol, as directed by physician's assistant, usually relieves any pain you may have. [...] office or . documented in this encounter Progress Notes Bk Anton MD - 10/27/2020 1030 EDT Derm Hx # Infiltrative BCC, right lower eyelid, s/p Mohs 07/2011, # BCC right midback shave exc 09/28 # moderately atypical nevus 09/28 # nevi Last seen 10/31 S Check up. Spot left thigh. O Examined face neck trunk both arms and legs Right lumbar superior 8mm and inferior 8mm reddish macules Left thigh rubbery 2-3 cm nodule c/w lipoma WHS prior mohs sites Scattered nevi A/P # right lumbar superior and inferior, r/o bcc, shave bx x 2 # lipoma left thigh, reassure. Declines removal # nevi, reassure # hx bcc rtc per bx/yearly/prn Sun protection SHAVE BIOPSY PROCEDURE NOTE Recommended shave biopsy of the right lumbar, superior and inferior The correct patient and date of , surgical site and procedure were verified prior to it being performed. Bk Anton MD 10:45 10/27/2020 PATIENT INFORMATION: Otilia Mayen [id number] 1960 DATE OF PROCEDURE: 10/27/2020 SURGEON: Bk Anton MD The indication, risks, benefits and alternatives to this procedure were discussed in detail with thepatient and all questions were answered. Informed consent was obtained in writing. 1% lidocaine withepinephrine 1:100,000 local infiltration local anesthetic was administered after prepping the area with an alcohol wipe. The specimen was removed by tangential shave using a Dermablade. Hemostasis was achieved with pressure and/or aluminum chloride. A sterile dressing was applied over petrolatum ointment. The specimen was submitted to pathology for histological evaluation. There were no complications. Verbal and written wound care instructions were provided. We will inform the patient of the biopsy results with in the next two weeks. Bk Anton MD 10/27/2020 10:45 Bk Anton MD Vandana singh MA - 10/27/2020 1030 EDT Review of Systems Constitutional: Negative for [...] sleep disturbance. The patient is not nervous/anxious. VANDANA GASTON MA 10/27/2020 10:29 Patient Education Topic: Wound Care Method: Handout and Verbal Taught to: Patient Barriers: None Outcomes: independent and verbalized understanding Signature:VANDANA GASTON MA 10/27/2020 10:45 documented in this encounter Miscellaneous Notes Result QuickNote - Bk Anton MD - 10/27/2020 1030 EDT I called pt. RTC 1 yr/prn if recurs. jp documented in this encounter Plan of Treatment Upcoming Encounters Date Type Specialty Care Team Description 10/28/2022 Office Visit Dermatology Bk Anton MD [address] [place] [facility] [place], [facility], [address] [place] [address] (Wo rk) documented as of this encounter Procedures Procedure Name Priority Date/Time Associated Diagnosis Comme nts SURGICAL PATHOLOGY Routine 10/27/2020 10:48 Neoplasm of Resul ts for this EDT uncertain behavior procedure are in of skin the results section. documented in this encounter Results SURGICAL PATHOLOGY (10/27/2020 10:48 EDT) Final Diagnosis A. SKIN OF LUMBAR REGION, RIGHT SUPERIOR, SHAVE BIOPSY: [facility] - Basal cell carcinoma, superficial and nodular type. CENTER - Basal cell carcinoma does not extend to edges of shave biopsy specimen in the plane of the sections examined. LABORATORY SERVICES B. SKIN OF LUMBAR REGION, RIGHT INFERIOR, SHAVE BIOPSY : - Basal cell carcinoma, superficial and nodular type. - Basal cell carcinoma does not extend to edges of shave biopsy specimen in the plane of the sections examined. Attestation By the signature [facility] Electronica lly below, the attending CENTER signed by Elliot physician certifies LABORATORY Dea Coleman MD on that they have 1) SERVICES 10/28/2020 at 0952 personally conducted a gross and/or microscopic examination of the described specimen(s), and/or personally interpreted the results of laboratory testing of the described specimen(s), and 2) personally rendered or confirmed the above diagnosis. Microscopic Emanating from the [facility] Description epidermis and present CENTER within the dermis are LABORATORY irregularly shaped SERVICES islands of atypical basal cells. The basal cells have scant cytoplasm and round dark nuclei. Mitotic figures and apoptotic bodies are evident. The nuclei at the periphery of the islands have a palisaded arrangement. The islands are associated with a fibromyxoid stroma and there is cleft formation between some of the islands and stroma. Clinical History Reddish macules 8 mm; [facility] R/O BCC, SCCis, other CENTER LABORATORY SERVICES Gross Description A. [facility] Received in formalin kaden d with proper patient identification (initials P, T) and right lumbar, superior is a shave biopsy of pale peterson-white to pink raised irregular skin (1.4 x 0.8 x 0.2 cm). The CENTER margin is inked blue. Serially sectioned and ent irely submitted in A1-A2. LABORATORY SERVICES B. Received in formalin kaden d with proper patient identification (initials P, T) and right lumbar, inferior is a shave biopsy of pale peterson-white to pink raised irregular skin (1.4 x 0.9 x 0.2 cm). The margin is inked blue. Serially sectioned and entirely submitted in B1-B2. Cortes Phillips 10/27/2020 12:34 Performing Lab [facility] Scanned Images [facility] Specimen Tissue - Skin (tissue) specimen (specime n) Tissue specimen (specimen) - Skin (tissu e) specimen (specimen) Performing Organization Address City/State/ZIP Code Phon e Number [facility] [address] [place] [address] SERVICES documented in this encounter Visit Diagnoses Diagnosis Neoplasm of uncertain behavior of skin - Primary Multiple nevi Benign neoplasm of skin, site unspecifie d History of nonmelanoma skin cancer Personal history of other malignant neop lasm of skin documented in this encounter Care Teams Cardroom Supervisor Relationship Specialty Start Date End Date Aun Guzman FNP PCP - General 01/19/[address] [place] [address] [place] [address] documented as of this encounter
--- OUTSIDE RECORDS SUMMARY | 2022-01-07 00:02 | XMS_ITS | Encounter Summary ---
:1960 Author Organization [facility] Address [address] [place] [address] Care Team Providers Name Role Phone Anu Guzman Delores LOAN ANALYST Primary Care Provider Reason for Visit Reason Comments Skin Exam FBSE; H/O BCC Encounter Details Date Type Department Care Team Description 09/26/2017 Office Visit [facility] Lila Lambert Hist orjagruti of basal cell Dermatology - Main MD carcinoma ([facility] [place] [address] [place] [address] Dx) [address] [place] [address] [address] [place] [address] Social History Tobacco Use Types Packs/Day Years Used Date Never Smoker Smokeless Tobacco: Never Used Sex Assigned at Date Recorded Female 10/25/2021 12:58 EDT documented as of this encounter Patient Instructions Patient InstructionsLila Lambert MD - 09/26/2017 10:45 EDT Recommendations for Sun Protection Ultraviolet (UV) radiation is a known carcinogen (cancer-causing agent) and is primarily responsiblefor most skin cancers, including Basal Cell Carcinoma, Squamous Cell Carcinoma, and many Melanomas. UV radiation also rapidly ages the skin, leading to wrinkles, uneven color, and poor texture. Minimizing UV exposure has been shown in multiple studies to decrease the likelihood of developing cancers and pre-cancers of the skin, as well as improve overall appearance. To minimize UV exposure: 1) Avoid exposure to sunlight during the middle of the day (10am to 4pm). Seek shade when outside during these hours. Limit outdoor activities to hydraulic repairer and/or evening hours when the sunlight isless intense. Remember that UV is reflected from water and snow, and can pass through window glass. It is still possible to get burned during cloudy weather and in the winter months. You can check the forecast for the UV Index in your area at most weather sites online. If the UV index is 3 or higher, sun protection/avoidance is recommended. 2) Wear protective clothing. Hats with wide brims that cover the ears and neck, sunglasses (sun exposure increases your risk for cataracts), long-sleeved shirts, long pants, and closed-top shoes offer good protection. Many makers of outdoor clothing test their fabrics for UV Protection Factor (UPF), which is a guide to the level of protection a particular item of clothing should provide. In general, loose weaves (Cotton) and tax services professional-colored fabrics offer less protection than tighter weaves or darker/thicker fabrics. It is possible to get a sunburn through clothing, especially if it is wet. 3) Use sunscreen on exposed areas. Choose a sunscreen that has a Sun Protection Factor (SPF) of 30+ or higher. Apply the sunscreen generously (so much that you can barely rub it in) to exposed areas 30minutes before sun exposure. Reapply every 2-3 hours, especially if you are in water or sweating. Ifyou tend to break out from sunscreen, choose a sunscreen designed for Sensitive Skin and/or one with physical blocking agents, such as Zinc Oxide and Titanium Dioxide. For vigorous activity, look for Sport sunscreens, which are resistant to sweating. 4) Avoid artificial sources of UV, such as tanning beds or sun lamps. The UV emitted by these devices is just as damaging, if not more so, than natural sunlight. There is a well-documented increase in the incidence of all common skin cancers in frequent tanning bed users. Other considerations: Vitamin D: Exposure to UV light is one of the ways your body gets Vitamin D, a necessary nutrient. Other sources are from the diet and/or dietary supplements. If you are actively avoiding the sun, it may be advisable to discuss Vitamin D supplementation with your Primary Care Provider (PCP). In general, taking a supplement of 1,000 to 2,000 International Units (IU) of Vitamin D3 is safe and well-tolerated in individuals who get minimal sun exposure and have normal kidney function. However, more or less Vitamin D may be recommended, depending on your individual needs, and the use of such supplementsshould be discussed with your PCP. For more information about sun protection and skin cancer: www.skincancer.org Recommended sunscreens: Chemical sunscreen Neutrogena Ultra Sheer Dry Touch (helioplex) Aveeno (same sunscreen as in Neutrogena) Coppertone Sport La Vinny-Posay Anthelios (mexoryl -good UVA and UVB) Vichy (mexoryl ??? available in Pablo) Gel formulations good for hair bearing skin Bullfrog Alcohol based - goes on quickly and good for skin with hair Solbar Physical sunblock good for sensitive skin (titanium dioxide and zinc oxide chemical/fragrance free) Blue Lizard sensitive COTZ TiZO (comes in tinted form) Neutrogena pure and free baby or sensitive Recommended sun protection clothing websites www.sunprecautions.com www.coolibar.Univa www.Lockitron.Univa www.Ksplice.Univa documented in this encounter Progress Notes Lila Lambert MD - 09/26/2017 1045 EDT DERMATOLOGY OUTPATIENT CLINIC NOTE Chief Complaint Patient presents with ??? Skin Exam FBSE; H/O BCC Dermatologic History: 1. Infiltrative BCC, right lower eyelid, s/p Mohs 07/2011 with Paul Cervantes MD, with repair by Salome Gilliam MD 2. Benign Nevi 3. Moderately atypical nevus s/p bx 10/04/16 4. BCC right back, out with biopsy 10/04/16 SUBJECTIVE Ms. Mayen is a 57 y.o. female who presents for follow-up for a skin check. She has been doing well since her last visit. Nothing on the skin has been bleeding or changing. She has a spot on the left cheek present for years unchanged. Also spot on nose present essentially her entire life. No new concerns. For full Medical, Surgical, Family, and Social [...] low papules with preserved network of pigmentation. - On the left cheek and right nasal ala there are pink dome shaped 2mm papules IMPRESSION: 1. History of moderately atypical nevus of left mid back 2. History of basal cell carcinoma of right mid back and right lower eyelid 3. Likely dermal nevi PLAN: 1. Reassurance about the benign [...] or in the interim should concerns arise. No orders of the defined types were placed in this encounter. Lila Lambert MD 09/26/2017 Adria Castañeda - 09/26/2017 1045 EDT Review of Systems Constitutional: Negative for [...] Neurological: Negative for numbness and headaches. Endo/Heme/Allergies: Bruises/bleeds easily. Psychiatric/Behavioral: Negative for sleep disturbance. The patient is not nervous/anxious. Adria Dawn 09/26/2017 10:38 documented in this encounter Plan of Treatment Upcoming Encounters Date Type Specialty Care Team Description 10/28/2022 Office Visit Dermatology Bk Anton MD 111 [facility], [facility] [address] [place] [address] (Wo rk) documented as of this encounter Visit Diagnoses Diagnosis History of basal cell carcinoma - Primar y Personal history of other malignant neop lasm of skin documented in this encounter Care Teams Ups Driver Relationship Specialty Start Date End Date Anu Guzman FNP PCP - General 01/19/[address] [place] [address] [place] [address] documented as of this encounter
--- OUTSIDE RECORDS SUMMARY | 2022-01-07 00:02 | XMS_ITS | Encounter Summary ---
:1960 Author Organization [facility] Address [address] [place] [address] Care Team Providers Name Role Phone Unknown, Provider Primary Care Provider Encounter Details Date Type Department Care Team Description 03/11/2010 Results Only [facility] Terrance Guzman, DIRECTOR RADIO Laboratory Services - [address] [id number] [place] [address] [phone] Social History Tobacco Use Types Packs/Day Years Used Date Never Assessed Sex Assigned at Date Recorded Female 10/25/2021 12:58 EDT documented as of this encounter Plan of Treatment Upcoming Encounters Date Type Specialty Care Team Description 10/28/2022 Office Visit Dermatology Bk Anton MD [address] [facility], [place], [address] [place], [place] [address] (Wo rk) documented as of this encounter Procedures Procedure Name Priority Date/Time Associated Diagnosis Comme nts CYTOPATHOLOGY Routine 03/11/2010 0:00 EDT Results for this procedure are i n the results section . documented in this encounter Results CYTOPATHOLOGY (03/11/2010 0:00 EDT) Pathology Report: CYTOPATHOLOGY REPORT ? [facility] ? LAB Reports generated via electr onic interface contain original data; ? however they are lacking the format of the original report. ? Caution should be taken when reading/interpreting unformatted reports. ? Name: ? JUANITA MAYEN ? Accession #: ? [id number] ? : ? 1960 (Age: 49) ??F ?Collect Date: ? 03/11/2010 ? Location: ? [facility] ? Receive Date: ? 03/12/2010 ? Provider: ?AURELIO HAYG OOD DIRECTOR RADIO ? Copy to: ? Specimen/Source: ? Pap Test, Cervix/Endocervix, ThinPrep Imaging System ? with manual evaluation ? Last Menstrual Period: ? 02/22/2010 ? SPECIMEN ADEQUACY ? Satisfactory for Eval uation ? - transformation zone compon ent present ? GENERAL CATEGORIZATION ? Negative for Intraepi thelial Lesion or Malignancy ? Document reviewed and electr onically signed by: ? Ikya Verville,CT(ASCP) ? Report Date: ??11/01/ 2010 14:43 ? End of Report ? Specimen Performing Organization Address City/State/[facility] Code Phon e Number [facility] [address] [place] [address] SERVICES [facility] [address] [place] [address] documented in this encounter Visit Diagnoses Not on filedocumented in this encounter Care Teams Head Of Marketing Adometry Relationship Specialty Start Date End Date Unknown, Provider, PCP - General 03/12/10 01/18/12 documented as of this encounter
--- OUTSIDE RECORDS SUMMARY | 2022-01-07 00:02 | XMS_ITS | Encounter Summary ---
:1960 Author Organization [facility] Address [address] [place] [address] Care Team Providers Name Role Phone Unavailable Primary Care Provider Unavailable Encounter Details Date Type Department Care Team Description 11/03/2000 Results Only [facility] - Carlos Boggs MD conversion [address] [place], [place] [address] Social History Tobacco Use Types Packs/Day Years Used Date Never Assessed Sex Assigned at Date Recorded Female 10/25/2021 12:58 EDT documented as of this encounter Plan of Treatment Upcoming Encounters Date Type Specialty Care Team Description 10/28/2022 Office Visit Dermatology Bk Anton MD 111 [facility], [facility], Level [address] [place], [place] [address] (Wo rk) documented as of this encounter Procedures Procedure Name Priority Date/Time Associated Diagnosis Comme nts CYTOPATHOLOGY Routine 11/03/2000 0:00 EDT Results for this procedure are i n the results section . documented in this encounter Results CYTOPATHOLOGY (11/03/2000 0:00 EDT) Pathology Report: CYTOPATHOLOGY REPORT [facility] Reports generated via electronic interface contain isamar ginal data; however they are lacking the format of the original re port. Caution should be taken when reading/interpreting unfo rmatted reports. Name: ? JUANITA EDUARDO ? Accession #: ? [id number] : ? 1960 (Age: 40) ??F ?Collect Date: ? 10/14 Location: ? [facility] ? Receive Date : ? 11/06/2000 Provider: ?CARLOS CONTRERAS MD Copy to: ? Specimen/Source: ?Conventional Pap Test, Cer vix/Endocervix Last Menstrual Period: ? Menstrual/ Status: ? Amenorrhea: on pill Hormonal/Contraceptive Status: ? Control Pills ? SPECIMEN ADEQUACY ? Satisfactory for evaluation. GENERAL CATEGORIZATION ? Within Normal Limits ? Document reviewed and electronically signed by: ? Mayda Kolb, ??CT(ASCP) ? Report Date: ??11/07/2000 12:12 End of Report Specimen Performing Organization Address City/State/ZIP Code Phon e Number [facility] [address] [place] [address] SERVICES [facility] [address] [place] [address] documented in this encounter Visit Diagnoses Not on filedocumented in this encounter
--- OUTSIDE RECORDS SUMMARY | 2022-01-07 00:02 | XMS_ITS | Encounter Summary ---
:1960 Author Organization [facility] Address [address] [place] [address] Care Team Providers Name Role Phone Anu Guzman HOTEL ENGINEER Primary Care Provider Reason for Visit Reason Onset Date Comments Appointment Related 10/23/2019 Encounter Details Date Type Department Care Team Description 10/23/2019 Telephone [facility] Sabino Anton ph C, Appointment Related Dermatology - [address], [address], [address] [place], [place] [address] [place] [address] [phone] (Wo rk) Social History Tobacco Use Types Packs/Day Years Used Date Never Smoker Smokeless Tobacco: Never Used Sex Assigned at Date Recorded Female 10/25/2021 12:58 EDT documented as of this encounter Miscellaneous Notes Telephone Encounter - Almaz Staples - 10/23/2019 1637 EDT Patient returned call. She states that she has no current areas of concern and is okay with an appointment next year. She has been scheduled with Dr. Anton on 10/27/2020 at 1:30pm Patient is aware to call before then if any new areas arise Thank you elephone Encounter - Suzan Delong - 10/23/2019 1121 EDT Left message for patient to call back to discuss whether she has any present concerns for appointment originally scheduled on 11/04 at 1:15pm with Dr. Anton. When patient calls back, if no concerns at all, fine to schedule out 1 year and patient can call if they have concerns before then. If patient has any specific spots of concern, photos should be emailed to the provider and they can be provided with the website www.dermpics.com, which has some helpful hints for taking good quality photos. Suzan Delong 10/23/2019 11:21 documented in this encounter Plan of Treatment Upcoming Encounters Date Type Specialty Care Team Description 10/28/2022 Office Visit Dermatology Bk Anton MD [address] [facility], [facility], [address] [place], [place] [address] (Wo rk) documented as of this encounter Visit Diagnoses Not on filedocumented in this encounter Care Teams Military Personnel Specialist Relationship Specialty Start Date End Date Anu Guzman FNP PCP - General 01/19/[address] [place] [address] [place] [address] documented as of this encounter
--- OUTSIDE RECORDS SUMMARY | 2022-01-07 00:02 | XMS_ITS | Encounter Summary ---
:1960 Author Organization [facility] Address [address] [place] [address] Care Team Providers Name Role Phone Anu Guzman [facility] Primary Care Provider Encounter Details Date Type Department Care Team Description 03/09/2012 Results Only [facility] [place] [facility] [place] Terrance Guzman, [facility] Laboratory Services - [address] [facility] [place] [id number] [facility] [address] [place], [place] [id number] [phone] Social History Tobacco Use Types Packs/Day Years Used Date Never Assessed Sex Assigned at Date Recorded Female 10/25/2021 12:58 EDT documented as of this encounter Plan of Treatment Upcoming Encounters Date Type Specialty Care Team Description 10/28/2022 Office Visit Dermatology Bk Anton MD 111 [facility], [place], [address] [place] [address] (Wo rk) documented as of this encounter Procedures Procedure Name Priority Date/Time Associated Diagnosis Comme nts PAP TEST- RESULT Routine 03/09/2012 0:00 EDT Resu lts for this ONLY procedure are i n the results section. documented in this encounter Results PAP TEST- RESULT ONLY (03/09/2012 0:00 EDT) Pathology Report: CYTOPATHOLOGY REPORT [facility] Reports generated via electronic interface contain isamar ginal data; however they are lacking the format of the original re port. Caution should be taken when reading/interpreting unfo rmatted reports. Name: ? JUANITA MAYEN ? Accession #: ? [id number] : ? 1960 (Age: 51) ??F ?Collect Date: ? 02/13 Location: ? [facility] ? Receive Date : ? 03/12/2012 Provider: ?ANU GUZMAN DIRECT SUPPORT PROFESSIONAL Copy to: ? Specimen/Source: ? Pap Test, Cervix/Endocervix, ThinPrep Imaging System with manual evaluation Last Menstrual Period: ? SPECIMEN ADEQUACY ? Satisfactory for Evaluation - transformation zone component present GENERAL CATEGORIZATION ? Negative for Intraepithelial Lesion or Malignan cy ? Document reviewed and electronically signed by: ? PAO Chiu(ASCP) ? Report Date: ??03/16/2012 09:14 End of Report Specimen Performing Organization Address City/State/ZIP Code Phon e Number [facility] [address] [place] [address] SERVICES [facility] [address] [place] [address] documented in this encounter Visit Diagnoses Not on filedocumented in this encounter Care Teams Program Director/Air Personality Relationship Specialty Start Date End Date Anu Guzman, DIRECT SUPPORT PROFESSIONAL PCP - General 01/19/[address] [place] [address] [place] [address] documented as of this encounter
--- OUTSIDE RECORDS SUMMARY | 2022-01-07 00:02 | XMS_ITS | Encounter Summary ---
:1960 Author Organization [facility] Address [address] [place] [address] Care Team Providers Name Role Phone Anu Guzman [facility] Primary Care Provider Encounter Details Date Type Department Care Team Description 05/02/2016 Results Only [facility] Anu Guzman BURRING MACHINE OPERATOR [phone] [facility] [facility] [place] [address] (Wo rk) Social History Tobacco Use Types Packs/Day Years Used Date Never Smoker Smokeless Tobacco: Never Used Sex Assigned at Date Recorded Female 10/25/2021 12:58 EDT documented as of this encounter Plan of Treatment Upcoming Encounters Date Type Specialty Care Team Description 10/28/2022 Office Visit Dermatology Bk Anton MD 111 [facility], [facility], [address] [place], [place] [address] (Wo rk) documented as of this encounter Procedures Procedure Name Priority Date/Time Associated Diagnosis Comme nts PAP TEST- RESULT Routine 05/02/2016 0:00 EST Resu lts for this ONLY procedure are i n the results section. documented in this encounter Results PAP TEST- RESULT ONLY (05/02/2016 0:00 EST) Pathology Report: CYTOPATHOLOGY REPORT [facility] Reports generated via electronic interface contain isamar ginal data; SERVICES however they are lacking the format of the original re port. Caution should be taken when reading/interpreting unfo rmatted reports. Name: ? JUANITA MAEYN ? Accession #: ? [id number] ? : ? 1960 (Age: [age]) ??F ?Collect Da te: ? 05/02/2016 ? Location: ? [facility] ? Receive Date: ? 016 ? Provider: ANU GUZMAN BURRING MACHINE OPERATOR Copy to: YOANDY CARSON MD ? Final Report SPECIMEN ADEQUACY ? Satisfactory for Evaluation - transformation zone component present GENERAL CATEGORIZATION ? Negative for Intraepithelial Lesion or Malignan cy ?? Last Menstrual Period: 2013 Specimen/Source: ??Pap Test, Cervix, ThinPrep Imaging System with manual evaluation Document reviewed and electronically signed by: ? PAO Ng(ASCP) ? Report ??Date: 05/05/2016 12:37 HPV with Pap Test ? Date Ordered: ? 05/05/2016 ? Status: ?? Signed Out ?Date Complete: ? 05/11/2016 ? By: ??S ystem Interface ? Date Reported: ? 05/11/2016 ? Interpretation RESULT: Negative for HPV. No E6 or E7 mRNA is detected from HPV types 16,18,31,3 3,35, 39,45,51,52,56,58,59,66, and 68 by chainstitch pants outseamer media miguel amplification. Comments Document reviewed and electronically signed by: ? System Interface ? Report date: 05/11/2016 By the signature above, the attending physician certif ies that he/she has personally conducted a gross and/or microscopic examin ation of the described specimens and rendered or confirmed the above diagnosi s. End of Report Specimen Performing Organization Address City/State/ZIP Code Phon e Number [facility] [address] [place] [address] SERVICES documented in this encounter Visit Diagnoses Not on filedocumented in this encounter Care Teams Atmospheric Physics Professor Relationship Specialty Start Date End Date Anu Guzman FNP PCP - General 01/19/[address] [place] [address] [place] [address] documented as of this encounter
--- OUTSIDE RECORDS SUMMARY | 2022-01-07 00:02 | XMS_ITS | Encounter Summary ---
:1960 Author Organization [facility] Address [address] [place] [address] Care Team Providers Name Role Phone Unavailable Primary Care Provider Unavailable Encounter Details Date Type Department Care Team Description 08/28/2003 Results Only [facility] Fierro tt, Monique Mayer MD conversion [address] [place], [place] [id number] [place] [id number] [phone] Social History Tobacco Use Types Packs/Day Years Used Date Never Assessed Sex Assigned at Date Recorded Female 10/25/2021 12:58 EDT documented as of this encounter Plan of Treatment Upcoming Encounters Date Type Specialty Care Team Description 10/28/2022 Office Visit Dermatology Bk Anton MD 111 [facility], [facility], [address] [place], [place] [address] (Wo rk) documented as of this encounter Procedures Procedure Name Priority Date/Time Associated Diagnosis Comme nts SURGICAL PATHOLOGY Routine 08/28/2003 0:00 EDT Re sults for this procedure are i n the results section. documented in this encounter Results SURGICAL PATHOLOGY (08/28/2003 0:00 EDT) Pathology Report: SURGICAL PATHOLOGY REPORT [facility] Reports generated via electronic interface contain isamar ginal data; LAB however they are lacking the format of the original re port. Caution should be taken when reading/interpreting unfo rmatted reports. Name: ? JUANITA EDUARDO ? Accession #: ? [id number] ? : ? 1960 (Age: 43) ??F ? Collect Date: ? 08/28/2003 ? Location: ? [facility] ? Receive Date: ? 004 ? Provider: MONIQUE VEGA MD Copy to: AMILCAR SAPP ? Final Pathologic Diagnosis: A. ?Skin of neck, left low, shave biopsy: 1. ?Basal cell carcinoma, superficial mul ticentric type. B. ?Skin of neck, posterior, shave biopsy : 1. ?Melanocytic nevus, intradermal type. Microscopic Description: ? Sections from left n amalia consist of a shave biopsy of skin. ??Emanating from the epidermis and exten ding into the papillary dermis are buds of atypical basal cells. ??The basal cells have scant cytoplasm an d round dark nuclei. Mitotic figures and apoptoti c bodies are evident. ??The nuclei at the periphery of the buds have a palisaded arrangement . The superficial dermis is loose and, in some areas, there is retraction of the atypical linda ls from the stroma. ?? Sections from posterior nec k consist of a shave biopsy of skin. ??Sections are of a papule with mild epidermal hyperplasia and hyperk eratosis. ??There is a proliferation of melanocytes within the dermis. ??The proliferation consists of nests, cords, and strands that diminish in size with descent into the dermis. The melanocytes are slightly enlarged but generally have round-oval nuclei and a moderate amount of cytoplasm . ??The melanocytes show product marketing director maturation. ??(Dr. Zarate)/klb Document reviewed and electronically signed by: Dea Zarate MD Report ??Date: 09/02/2003 15:52 By the signature above, the attending physician certif ies that he/she has personally conducted a gross and/or microscopic examin ation of the described specimens and rendered or confirmed the above diagnosi s. Specimen(s) Received: A. ?Shave exc L low neck (#1) B. ?Polypoid nevus nape neck ??clinically benign shave (#2) ? Clinical History: ? Fair ++ skin; hx blossom re burn shoulders; new lesion L low neck approximately 1 yr; increased in size; asy mptomatic = 1.2 x 0.8 cm pearly sl pigmented papule; A. R/O BCC (no hx pre-existing mole ??vs amelanotic me thuan; pt has ++ irreg moles) Gross Description: ? Received in formalin labelled Eduardo and #1 ??1.2 x 0.8 cm papule left neck is a shave biopsy of a ritter-pink, mottled papule that measures 1.2 x 0.9 x 0.3 cm. ??The specimen is trisected and submitted enti rely as (A). Received in formalin kaden d Eduardo and post neck 4.0 mm is a shave biopsy of a peterson papule that measure s 0.5 x 0.4 x 0.3 cm. ??The specimen is bisected and submitted entirely as (B). ??(Dr. Rivera-MICHELE)/[facility] End of Report Specimen Performing Organization Address City/State/ZIP Code Phon e Number [facility] [address] [place] [address] SERVICES [facility] [address] [place] [address] documented in this encounter Visit Diagnoses Not on filedocumented in this encounter
--- OUTSIDE RECORDS SUMMARY | 2022-01-07 00:02 | XMS_ITS | Encounter Summary ---
:1960 Author Organization [facility] Address [address] [place] [address] Care Team Providers Name Role Phone Unavailable Primary Care Provider Unavailable Encounter Details Date Type Department Care Team Description 03/09/2009 Orders Only [facility] Terrance Guzman, UTILITY HELICOPTER REPAIRER Laboratory Services - [address] [facility] [address] [address] [place], [place] [address] [phone] Social History Tobacco Use Types Packs/Day Years Used Date Never Assessed Sex Assigned at Date Recorded Female 10/25/2021 12:58 EDT documented as of this encounter Plan of Treatment Upcoming Encounters Date Type Specialty Care Team Description 10/28/2022 Office Visit Dermatology Bk Anton MD 111 [facility], [facility] [place], Level 5 [place], [place] [address] (Wo rk) documented as of this encounter Procedures Procedure Name Priority Date/Time Associated Diagnosis Comme nts CYTOPATHOLOGY Routine 03/09/2009 0:00 EDT Results for this procedure are i n the results section . documented in this encounter Results CYTOPATHOLOGY (03/09/2009 0:00 EDT) Pathology Report: CYTOPATHOLOGY REPORT ? [facility] ? LAB Reports generated via electr onic interface contain original data; ? however they are lacking the format of the original report. ? Caution should be taken when reading/interpreting unformatted reports. ? Name: ? JUANITA EDUARDO ? Accession #: ? [id number] ? : ? 1960 (Age: 48) ??F ?Collect Date: ? 03/09/2009 ? Location: ? [facility] ? Receive Date: ? 03/09/2009 ? Provider: ?AURELIO HAYG OOD UTILITY HELICOPTER REPAIRER ? Copy to: ? Specimen/Source: ? Pap Test, Cervix/Endocervix, ThinPrep Imaging System ? with manual evaluation ? Last Menstrual Period: ? 10/01/09 ? Other: ? HPVA - HPV testing requested if ASC-US on the current ThinPrep Pap test. ? SPECIMEN ADEQUACY ? Satisfactory for Eval uation ? - transformation zone compon ent present ? - scant squamous epithelial component ? GENERAL CATEGORIZATION ? Negative for Intraepi thelial Lesion or Malignancy ? Document reviewed and electr onically signed by: ? Emily Rutherford, SCT( ASCP) ? Report Date: ??11/03/ 2009 12:26 ? End of Report ? Specimen Performing Organization Address City/State/ZIP Code Phon e Number [facility] [address] [place] [address] SERVICES [facility] [address] [place] [address] documented in this encounter Visit Diagnoses Not on filedocumented in this encounter
--- OUTSIDE RECORDS SUMMARY | 2022-01-07 00:02 | XMS_ITS | Encounter Summary ---
:1960 Author Organization [facility] Address [address] [place] [address] Care Team Providers Name Role Phone Anu Guzman SAP INTEGRATION ARCHITECT Primary Care Provider Reason for Visit Reason Comments Mohs Follow Up Right Lower Eyelid, skin exa m Encounter Details Date Type Department Care Team Description 01/23/2012 Office Visit [facility] Richy Cervantes of skin and subcutaneous tissue; Dermatology - [facility] Paul Hernandez MD Nevus; [place] [address] History of basal cell cancer 111 [facility] [address] [place], [place] [id number] [place] [address] [phone] [address] (Wo rk) Social History Tobacco Use Types Packs/Day Years Used Date Never Assessed Sex Assigned at Date Recorded Female 10/25/2021 12:58 EDT documented as of this encounter Progress Notes Agusto Tafoya MD - 01/23/2012 1030 EDT Dermatology Outpatient Clinic Note 01/23/2012 Chief Complaint: Skin check Skin cancer history 1. Infiltrative basal cell carcinoma - right lower eyelid - 07/24 - s/p mohs excision and repair by Salome Gilliam MD History of Present Illness: Patient is a 51 year old female who presents for a mohs follow up and as full body skin check. Skin cancer history as noted above. She has doing well since her right lower eyelid basal cell carcinoma removal on 07/24. She has not had any changes to her vision, pain in her eyes, and has not noticed anygrowth or nodularity of the surgical site. She states she has been using regular sun protection. Shesays she has a new red spot on the left nasal ala X 4-5 months. Has not been growing, itching, or bleeding, but does not seem to be resolving. Otherwise, no other complaints about her skin at this time. See documentation in [facility] for medical, surgical, social and family history, which were reviewed at this visit. Present medications, allergies, review of systems are also documented and were all reviewed at this visit. EXAM: Well appearing, well groomed in no acute distress, patient is alert and oriented to person, place, and time. Complete skin exam of the scalp, face, neck, chest, back, abdomen, upper and lower extremities, hands, feet, nails and digits was performed. The examination was normal with addition to the following comments: Right lower eyelid had a well healed Moh's surgical scar without any evidence of nodularity or recurrence, left nasal alar groove had a 2 mm sy red well defined papule, the central chest had a dark brown oval well circumscribed ~7mm macule, no posterior auricular, preauricular, submandibular, submental, cervical, lymphadenopathy, there were no lesions suspicious for malignancy IMPRESSION: 1. Sy angioma - left nasal alar groove 2. Benign nevus - central chest 3. History of basal cell carcinoma PLAN: 1. Patient was reassured about the benign nature of the exam today 2. The nature of sun-induced photo-aging and skin cancers is discussed. Sun avoidance, protective clothing, and the use of 30-SPF sunscreens is advised. Observe closely for skin damage/changes, and call if such occurs. ABCDE of melanoma were reviewed. Follow-up in 1 year for a skin check Agusto Tafoya MD 01/23/2012 10:30 Attestation Statement: I saw and examined the patient with the resident/fellow. I agree with the findings and plan of care documented in the resident's/fellow's note. Paul Cervantes MD, TYESHA Salt Manager Division of Dermatology [facility] Pari Persaud - 01/23/2012 1015 EDT Images from the original note were not included. A complete 12 point review of systems was obtained and reviewed. All systems are negative. Pari Jacobs 10:15 01/23/2012 Agusto Tafoya MD 01/23/2012 10:30 Paul Cervantes MD documented in this encounter Plan of Treatment Upcoming Encounters Date Type Specialty Care Team Description 10/28/2022 Office Visit Dermatology Bk Anton MD 111 [facility], [facility], Level [address] [place], [place] [address] (Wo rk) documented as of this encounter Visit Diagnoses Diagnosis Hemangioma of skin and subcutaneous tiss ue Nevus Benign neoplasm of skin, site unspecifie d History of basal cell cancer Personal history of other malignant neop lasm of skin documented in this encounter Care Teams Gunstock Spray Unit Feeder Relationship Specialty Start Date End Date Anu Guzman, SAP INTEGRATION ARCHITECT PCP - General 01/19/[address] [place] [address] [place] [address] documented as of this encounter
--- OUTSIDE RECORDS SUMMARY | 2022-01-07 00:02 | XMS_ITS | Encounter Summary ---
:1960 Author Organization [facility] Address [address] [place] [address] Care Team Providers Name Role Phone Anu Guzman HYDROGRAPHICAL TECHNICAL OFFICER Primary Care Provider Reason for Visit Reason Comments Follow-up RECHECK SPOT ON BACK Encounter Details Date Type Department Care Team Description 11/08/2016 Office Visit [facility] Lila Lambert Scar (Primary Dx); Dermatology - Main MD History of basal cell carcinoma [address] [address] [address] [place] [address] Social History Tobacco Use Types Packs/Day Years Used Date Never Smoker Smokeless Tobacco: Never Used Sex Assigned at Date Recorded Female 10/25/2021 12:58 EDT documented as of this encounter Progress Notes Ashley Lazaro MD - 11/08/2016 1130 EDT DERMATOLOGY OUTPATIENT CLINIC NOTE Chief Complaint Patient presents with ??? Follow-up RECHECK SPOT ON BACK Dermatologic History: 1. Infiltrative BCC, right lower eyelid, s/p Mohs 07/2011 with Paul Cervantes MD, with repair by Salome Gilliam MD 2. Benign Nevi 3. Moderately atypical nevus s/p bx 10/04/16 4. BCC right back, out with biopsy 10/04/16 Last Dermatology office visit: 10/04/16 SUBJECTIVE Ms. Mayen is a 56 y.o. female who presents for follow-up to recheck the spot on her back which was biopsied a month ago and showed an moderately atypical nevus that was still present at one edge. She has healed well and has no other cutaneous concerns. For full Medical, Surgical, Family, and [...] hands, feet, digits and nails was performed. The dermatologic examination was normal with the addition of the following comments: A) left thigh: subcutaenous papule without surface change or visible punctum B) back: well-healed scar of right mid back and left upper back and right upper arm-- no evidence ofrecurrence at any biopsy site IMPRESSION: 1. History of moderately atypical nevus of left mid back, present at peripheral edge 2. History of basal cell carcinoma of right mid back and right lower eyelid PLAN: 1. Appears well-healed from biopsy with no grossly visible residual pigment, despite positivity at peripheral edge histologically. Recommend continued observation. 2. The nature of skin cancers and [...] defined types were placed in this encounter. Ashley Lazaro MD 11/08/2016 11:12 Attestation Statement: I saw and examined the patient with the resident/fellow. I agree with the findings and plan of care documented in the resident's/fellow's note. Lila [place] MD 11/10/2016 amandeep Garcia - 11/08/2016 1130 EDT Review of Systems Constitutional: Negative for [...] disturbance. The patient is not nervous/anxious. Ramandeep Garcia documented in this encounter Plan of Treatment Upcoming Encounters Date Type Specialty Care Team Description 10/28/2022 Office Visit Dermatology Bk Anton MD 111 [facility], [facility], [address] [place], [place] [address] (Wo rk) documented as of this encounter Visit Diagnoses Diagnosis Scar - Primary Scar condition and fibrosis of skin History of basal cell carcinoma Personal history of other malignant neop lasm of skin documented in this encounter Care Teams Building Coordinator Relationship Specialty Start Date End Date Anu Guzman FNP PCP - General 01/19/[address] [place] [address] [place] [phone] documented as of this encounter
--- OUTSIDE RECORDS SUMMARY | 2022-01-07 00:02 | XMS_ITS | Encounter Summary ---
:1960 Author Organization [facility] Address [address] [place] [address] Care Team Providers Name Role Phone Anu Guzman [facility] Primary Care Provider Encounter Details Date Type Department Care Team Description 03/20/2015 Results Only [facility] Anu Guzman [facility] [phone] [facility] [facility] [place] [address] (Wo rk) Social History Tobacco Use Types Packs/Day Years Used Date Never Smoker Smokeless Tobacco: Never Used Sex Assigned at Date Recorded Female 10/25/2021 12:58 EDT documented as of this encounter Plan of Treatment Upcoming Encounters Date Type Specialty Care Team Description 10/28/2022 Office Visit Dermatology Bk Anton MD 111 [facility], [facility], [address] [place], [place] [address] (Wo rk) documented as of this encounter Procedures Procedure Name Priority Date/Time Associated Diagnosis Comme nts PAP TEST- RESULT Routine 03/20/2015 0:00 EST Resu lts for this ONLY procedure are i n the results section. documented in this encounter Results PAP TEST- RESULT ONLY (03/20/2015 0:00 EST) Pathology Report: CYTOPATHOLOGY REPORT [facility] Reports generated via electronic interface contain isamar ginal data; SERVICES however they are lacking the format of the original re port. Caution should be taken when reading/interpreting unfo rmatted reports. Name: ? JUANITA MAYEN ? Accession #: ? [id number] : ? 1960 (Age: [age]) ??F ?Collect Date: ? 03/20 Location: ? [facility] ? Receive Date : ? 03/23/2015 Provider: ?ANU GUZMAN CHILD CARE NURSE Copy to: ?YOANDY CARSON MD ? Specimen/Source: ? Pap Test, Cervix/Endocervix, ThinPrep Imaging System with manual evaluation Last Menstrual Period: ? 01/2014 ? SPECIMEN ADEQUACY ? Satisfactory for Evaluation - transformation zone component present GENERAL CATEGORIZATION ? Negative for Intraepithelial Lesion or Malignan cy ? Document reviewed and electronically signed by: ? PAO Olsen(ASCP) ? Report Date: ??03/24/2015 13:56 End of Report Specimen Performing Organization Address City/State/ZIP Code Phon e Number [facility] [address] [place] [address] SERVICES documented in this encounter Visit Diagnoses Not on filedocumented in this encounter Care Teams Pet Food Deboner Relationship Specialty Start Date End Date Anu Guzman, CHILD CARE NURSE PCP - General 01/19/[address] [place] [address] [place] [address] documented as of this encounter
--- OUTSIDE RECORDS SUMMARY | 2022-01-07 00:02 | XMS_ITS | Encounter Summary ---
:1960 Author Organization [facility] Address [address] [place] [address] Care Team Providers Name Role Phone Unavailable Primary Care Provider Unavailable Encounter Details Date Type Department Care Team Description 03/05/2007 Results Only [facility] - Carlos Boggs MD conversion [address], [place] [id number] Social History Tobacco Use Types Packs/Day Years Used Date Never Assessed Sex Assigned at Date Recorded Female 10/25/2021 12:58 EDT documented as of this encounter Plan of Treatment Upcoming Encounters Date Type Specialty Care Team Description 10/28/2022 Office Visit Dermatology Bk Anton MD [address] [facility], [facility], [address] [place], [place] [address] (Wo rk) documented as of this encounter Procedures Procedure Name Priority Date/Time Associated Diagnosis Comme nts CYTOPATHOLOGY Routine 03/05/2007 0:00 EDT Results for this procedure are i n the results section . documented in this encounter Results CYTOPATHOLOGY (03/05/2007 0:00 EDT) Pathology Report: CYTOPATHOLOGY REPORT [facility] Reports generated via electronic interface contain isamar ginal data; however they are lacking the format of the original re port. Caution should be taken when reading/interpreting unfo rmatted reports. Name: ? JUANITA EDUARDO ? Accession #: ? [id number] : ? 1960 (Age: 46) ??F ?Collect Date: ? 02/13 Location: ? [facility] ? Receive Date : ? 03/06/2007 Provider: ?CARLOS CONTRERAS MD Copy to: ? Specimen/Source: ? ThinPrep Pap Test, Cervix/Endocervix, processed on [employer] ThinPrep Imaging System, with manual evaluation Last Menstrual Period: ? SPECIMEN ADEQUACY ? Satisfactory for Evaluation - transformation zone component present GENERAL CATEGORIZATION ? Negative for Intraepithelial Lesion or Malignan cy ? Document reviewed and electronically signed by: ? PAO Olsen(ASCP) ? Report Date: ??03/12/2007 08:25 End of Report Specimen Performing Organization Address City/State/ZIP Code Phon e Number [facility] [address] [place] [address] SERVICES [facility] [address] [place] [address] documented in this encounter Visit Diagnoses Not on filedocumented in this encounter
--- OUTSIDE RECORDS SUMMARY | 2022-01-07 00:02 | XMS_ITS | Encounter Summary ---
:1960 Author Organization [facility] Address [address] [place] [address] Care Team Providers Name Role Phone Terrance Guzmanrebekah Estrella LUNCHROOM MOTHER Primary Care Provider Reason for Visit Reason Comments Skin Exam Encounter Details Date Type Department Care Team Description 04/08/2013 Office Visit [facility] Helen, Bertha o f basal cell carcinoma (Primary Dx); Dermatology - [facility] Paul Hernandez MD [facility] ne[place] [address] DANIE [address] [facility] [address] [place], [place] [id number] [place] [address] [phone] (Wo rk) Social History Tobacco Use Types Packs/Day Years Used Date Never Smoker Sex Assigned at Date Recorded Female 10/25/2021 12:58 EDT documented as of this encounter Discharge Diagnoses Diagnosis 216.3 BENIGN FITO SKIN FACE NEC[ICD-9-CM] V10.83 PERS HX SKIN MALIGNANCY NEC[ICD-9 -CM] documented in this encounter Patient Instructions Patient InstructionsKey Byers MD - 04/08/2013 10:05 EST SUN PROTECTION AND SUN SCREENS Repeated and prolonged exposure to sunlight greatly [...] 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 ?? Make clothing a regular part of protection. Keep your shirt on- wear long sleeves and a wide brimmed hat. ?? Be especially careful when on the water, snow or sand as sunlight is reflected upwards from thesesurfaces. ?? Don???t forget your eyes! Wear sunglasses- Sun exposure increases your risk for cataracts. ?? Make sure your children practice good [...] ???waterproof?? sunscreen is usually good for about 3 hours, even if you???re swimming. A ???water resistant?? sunscreen should be reapplied every 2 hours and after swimming. Remember to put sunscreen on your ears and lips. There are many lip balms available with sunscreen. For more information about sun protection and skin cancer: www.skincancer.org Sunscreens: Sunlight is made up of different [...] Good ???everyday?? moisturizer for the face: ?? Oil of Olay Complete Sun Protection - SPF 15 ?? Cetaphil daily facial moisturizer - SPF 15 ?? Neutrogena daily facial moisturizer - SPF 30 Recommended resources for sun protective clothing and hats: ?? www.[employer] ?? www.[employer] documented in this encounter Progress Notes Key Byers MD - 04/08/2013 1005 EST DERMATOLOGY OUTPATIENT CLINIC NOTE Chief Complaint Patient presents with ??? Skin Exam Dermatologic History: Infiltrative BCC, right lower eyelid, s/p Mohs with repair by Salome Gilliam MD 07/2011 History of Present Illness: Ms. Mayen is a 52 y.o. female who presents for skin check. The patient was last seen in January 2012 for a skin check, at which time only benign findings were noted. Since this visit, the patient continues to diligently use sun protection. She states her right eyelid has healed well and gives her no problems. The patient denies other new or changing lesions, and has no other cutaneous concerns today. Please see this encounter in the electronic chart which I have personally reviewed for full medical,surgical, family, and social histories, review of systems, medications, and allergies. Objective: Physical Exam: The patient is an alert, pleasant, interactive 52 y.o.-year-old female sitting comfortablyon the examination table. She has a fair skin phenotype. Complete cutaneous examination including the scalp, face, ears, neck, shoulders, axillae, upper extremities, hands, chest, abdomen, back, buttocks, lower extremities, feet, and nails is performed. Notable findings include the following: well healing scar on right lower eyelid; approximately 5, 3 to 7 mm pink domed papules on face. Assessment Encounter Diagnoses Name Primary? History of basal cell carcinoma Yes ??? Multiple nevi No evidence of local BCC recurrence or other lesions concerning for malignancy. Benign appearing nevi on face. Plan: Otilia was seen today for skin exam. Diagnoses and associated orders for this visit: History of basal cell carcinoma, right lower eyelid -Handouts on sun protection were provided to the patient -Reviewed the importance of sun avoidance, sun protection, and self skin examination for the prevention and early detection of skin cancer. ABCDE of melanoma was reviewed. The nature of skin cancers and photo-aging was discussed. Multiple nevi, face -Patient reassured as to the benign nature of the lesion(s) The patient will follow up in one year, or sooner should any new problems or concerns arise. Key Byers MD 04/08/2013 10:15 Attestation Statement: I saw and examined the patient with the resident/fellow. I agree with the findings and plan of care documented in the resident's/fellow's note. Paul Cervantes MD, [facility] Division of Dermatology [facility] Pari Connelly - 04/08/2013 1003 EST Review of Systems Constitutional: Negative for fever, [...] sleep disturbance. The patient is not nervous/anxious. Key Byers MD 04/08/2013 10:05 documented in this encounter Plan of Treatment Upcoming Encounters Date Type Specialty Care Team Description 10/28/2022 Office Visit Dermatology Bk Anton MD [address] [facility], [place], [address] [place], [place] [phone] (Wo rk) documented as of this encounter Visit Diagnoses Diagnosis History of basal cell carcinoma - Primar y Personal history of other malignant neop lasm of skin Multiple nevi Benign neoplasm of skin, site unspecifie d documented in this encounter Care Teams Management Expert Relationship Specialty Start Date End Date Anu Guzman FNP PCP - General 01/19/[address] [place] [address] [place] [phone] documented as of this encounter
--- OUTSIDE RECORDS SUMMARY | 2022-01-07 00:02 | XMS_ITS | Encounter Summary ---
:1960 Author Organization [facility] Address [address] [place] [address] Care Team Providers Name Role Phone Unavailable Primary Care Provider Unavailable Encounter Details Date Type Department Care Team Description 11/03/1999 Results Only [facility] [place] [facility], Aurelio Estrella, FAMILY COURT COUNSELLOR conversion [address] [facility] [address] [place] [phone] (Wo rk) Social History Tobacco Use Types Packs/Day Years Used Date Never Assessed Sex Assigned at Date Recorded Female 10/25/2021 12:58 EDT documented as of this encounter Plan of Treatment Upcoming Encounters Date Type Specialty Care Team Description 10/28/2022 Office Visit Dermatology Bk Anton MD [address] [facility], [facility], [address] [place], [place] [phone] (Wo rk) documented as of this encounter Procedures Procedure Name Priority Date/Time Associated Diagnosis Comme nts CYTOPATHOLOGY Routine 11/03/1999 0:00 EDT Results for this procedure are i n the results section . documented in this encounter Results CYTOPATHOLOGY (11/03/1999 0:00 EDT) Pathology Report: CYTOPATHOLOGY REPORT [facility] Reports generated via electronic interface contain isamar ginal data; however they are lacking the format of the original re port. Caution should be taken when reading/interpreting unfo rmatted reports. Name: ? JUANITA EDUARDO ? Accession #: ? [id number] : ? 1960 (Age: 39) ??F ?Collect Date: ? 10/14 Location: ? [facility] ? Receive Date : ? 11/04/1999 Provider: ?AURELIO BAE FAMILY COURT COUNSELLOR Copy to: ? Specimen/Source: ?Conventional Pap Test, Cer vix/Endocervix Last Menstrual Period: ? 09/02/99 Hormonal/Contraceptive Status: ? Oral contraceptives ? SPECIMEN ADEQUACY ? Satisfactory for evaluation. GENERAL CATEGORIZATION ? Within Normal Limits ? Document reviewed and electronically signed by: ? PAO Olsen(ASCP) ? Report Date: ??11/05/1999 11:25 End of Report Specimen Performing Organization Address City/State/ZIP Code Phon e Number [facility] [address] [place] [address] SERVICES [facility] [address] [place] [address] documented in this encounter Visit Diagnoses Not on filedocumented in this encounter
--- OUTSIDE RECORDS SUMMARY | 2022-01-07 00:02 | XMS_ITS | Encounter Summary ---
:1960 Author Organization [facility] Address [address] [place] [address] Care Team Providers Name Role Phone Anu Guzman BUSINESS SUPPORT ASSOCIATE Primary Care Provider Encounter Details Date Type Department Care Team Description 07/24/2019 Lab Requisition [facility] Anu Guzman E ncounter for other Pathology & BUSINESS SUPPORT ASSOCIATE general examination Laboratory Medicine [address] [place], [place] [address] [facility] [phone] [place], [place] [phone] Social History Tobacco Use Types Packs/Day Years Used Date Never Smoker Smokeless Tobacco: Never Used Sex Assigned at Date Recorded Female 10/25/2021 12:58 EDT documented as of this encounter Plan of Treatment Upcoming Encounters Date Type Specialty Care Team Description 10/28/2022 Office Visit Dermatology Bk Anton MD [address] [facility], [place] [place], [address] [place], [place] [phone] (Wo rk) documented as of this encounter Procedures Procedure Name Priority Date/Time Associated Comments Diagnosis PAP TEST Today 07/23/2019 10:00 Encounter for other Resu lts for this EDT general examination procedur e are in the results section. HUMAN PAPILLOMAVIRUS Today 07/23/2019 10:00 Encounter for ot her Results for this (HPV) DETECTION-HIGH EDT general examination procedure are in RISK TYPES the results section. documented in this encounter Results HUMAN PAPILLOMAVIRUS (HPV) DETECTION-HIGH RISK TYPES (07/23/2019 10:00 EDT) Human Papillomavirus NegativeComment: No Negative UV MEDICAL (HPV) Detection-High E6 or E7 mRNA is CENTER LABORATOR Y Types detected from HPV SERVICES types 16,18,31,33,35,39,45 ,51,52,56,58,59,66, and 68 by etl tester mediated amplification. Specimen Pap Test - Cervix and/or Endocervix Performing Organization Address City/[facility]/ZIP Code Phon e Number [facility] [address] [place] [address] SERVICES PAP TEST (07/23/2019 10:00 EDT) Specimens A. Cervix and/or [facility] MEDICAL Endocervix, , CENTER ThinPrep Imaging LABORATORY System with Manual SERVICES Evaluation Specimen Adequacy Satisfactory for UV MEDICAL Evaluation - CENTER transformation zone LABORATORY component present SERVICES General Negative for [facility] MEDICAL Categorization intraepithelial CENTER lesion or malignancy LABORATORY SERVICES Attestation By the signature below, the attending physician certifies that they have personally conducted a gross and/or microscopic [facility] ICA Electronically examination of the described specimens and rendered or confirmed the above diagnosis. CENTER signed by ISIDRA Thorpe on 2019 SERVICES at 1500 Clinical History NONE [facility] SERVICES HPV The result for the Human Pap illomavirus (HPV) Detection-High Risk Types is Negative. No E6 or E7 mRNA is detected from HPV types 16,18,31,33,35,39,45,51,52,56,58,59,66, and 68 by etl tester mediated [facility] MEDICAL amplification.Testing was pe rformed on specimen [id number] and was resulted on 07/31/2019 1455 EDT by MICKIE, LAB INSTRUMENT RESULTS IN [facility] SERVICES Scanned Images [facility] SERVICES Specimen Pap Test - Cervix and/or Endocervix Performing Organization Address City/[facility]/ZIP Code Phon e Number [facility] [address] [place] [address] SERVICES documented in this encounter Visit Diagnoses Diagnosis Encounter for other general examination documented in this encounter Care Teams B2B Sales Professional Relationship Specialty Start Date End Date Anu Guzman, JAZZ PCP - General 01/19/[address] [place] [address] [place] [address] documented as of this encounter
--- NOTE | 2022-01-07 07:30 | DI.MAMMO_ITS ---
Exam(s) MAMMO SCREENING EXAM: MAMMO SCREENING CLINICAL HISTORY: screening. TECHNIQUE: Bilateral full field digital CC and MLO mammographic images were obtained with 3D tomosyn thesis and utilizing computer aided detection (CAD). COMPARISON: Prior mammograms were reviewed, the most recent being October 2020. FINDINGS: There has been no significant change in the appearance and distribution of fibroglandular tissue whic h is again noted be moderately dense. There are no new obvious spiculated masses nor malignant appearing microcalcification groups. There is no significant architectural distortion nor skin thickening-retraction. IMPRESSION: No radiographic evidence of malignancy. Dense bilateral fibroglandular tissue BI-RADS Category 2 - Benign Findings Breast Density - Category C - Heterogeneously dense Breast density Category C or D implies that the patient has dense breast tissue. Dense breast tissue can make it harder to find cancer on a mammogram. Dense breast tissue is also associated with an incr eased risk of breast cancer. This information about the result of the mammogram report was provided to the patient to raise their awareness. Use this report when you speak with the patient about their risks for breast cancer, which includes their family history. At that time, you may recommend additional screening tests (Ultrasoun d or MRI) as these tests may add significant information. A negative radiographic report should not delay biopsy if a dominant or clinically suspicious mass is present. Up to ten percent of cancers are not identified on mammography. A negative report may reinforce clinical impression. Adenosis and dense breasts may obscure an underlying neoplasm. False positive reports average 6 to 10%. Patient will receive a letter notifying them of these results.
== END ==
PROVIDERS: PCP Internal Medicine; Visit Provider Nurse Practitioner Family
DX: Z12.31 Encounter for screening mammogram for malignant neoplasm of breast (principal)
CPT/HCPCS: 77063; 77067

== ENCOUNTER 2022-11-23 15:38 | Outpatient (REF) | payer BC, SELFPAY ==
--- NOTE | 2022-11-23 15:30 | PAPFT_PTH ---
PATIENT: Otilia Mayen LOC: [facility] U#:[id number] AGE/SX: 62/F ROOM: RE11/23/[address]: Wanda Pennington NP : 1960 BED: DIS: 11/23/2022 SPEC #: [id number] RECD: 11/23/22 17:53 STATUS: JOHNBecki REJoel #: [id number] ANDREA: 11/23/22 15:[address]: Wanda Pennington NP DEPT: [facility] Cytology RECD BY: Virginia Meza ENTERED: 11/23/22 17:54 SP TYPE: PAPFT OTHR DR: Key Meyer Tissues: 1 - CX/ENDOCX FOR PAP SMEARS Procedures: PAP THIN PREP/UVM Screening HPV DNA PROBE Comments: [id number]
== END 2022-11-23 15:39 | disposition home or self-care (01) ==
LOC: LBN 15:38
PROVIDERS: PCP Internal Medicine; Visit Provider Nurse Practitioner Women's Health
DX: Z11.51 Encounter for screening for human papillomavirus (HPV) (principal)
CPT/HCPCS: 88142; 87624

== ENCOUNTER → 2023-01-10 01:37 | Outpatient (CLI) | payer BC, SELFPAY ==
--- NOTE | 2023-01-10 08:45 | DI.MAMMO_ITS ---
Exam(s) MAMMO SCREENING EXAM: MAMMO SCREENING CLINICAL HISTORY: screening, Z12.39 TECHNIQUE: Bilateral full field digital CC and MLO mammographic images were obtained with 3D tomosyn thesis and utilizing computer aided detection (CAD). COMPARISON: Available for comparison. FINDINGS: Masses/Architectural Distortion: None seen. Microcalcifications: No suspicious pleomorphic-type are seen. Skin Thickening/Nipple Retraction: None. IMPRESSION: 1. No significant interval change with no specific features of malignancy noted. 2. Unless there is more urgent need, screening mammography is recommended, as per [employer] guidelines. BI-RADS Category 1 - Negative Breast Density - Category C - Heterogeneously dense Breast density category C or D implies that the patient has dense breast tissue. Dense breast tissue is very common and is not abnormal but dense breast tissue can make it harder to find cancer on a ma mmogram. Also, dense breast tissue may increase their breast cancer risk. This information about the result of the mammogram report was provided to the patient to raise their awareness. Use this report when you speak with the patient about their risks for breast cancer, which includes their family hist ory. At that time, you may recommend for more screening tests (Ultrasound or MRI) as they might be us eful based on their risk. A negative radiographic report should not delay biopsy if a dominant or clinically suspicious mass is present. Up to ten percent of cancers are not identified on mammography. A negative report may reinforce clinical impression. Adenosis and dense breasts may obscure an underlying neoplasm. False positive reports average 6 to 10%. Patient will receive a letter notifying them of these results.
== END ==
PROVIDERS: PCP Internal Medicine; Visit Provider Nurse Practitioner Women's Health
DX: Z12.31 Encounter for screening mammogram for malignant neoplasm of breast (principal)
CPT/HCPCS: 77063; 77067

== ENCOUNTER 2024-04-17 01:43 | Outpatient (CLI) | payer BC, SELFPAY ==
--- NOTE | 2024-04-17 07:45 | DI.MAMMO_ITS ---
Exam(s) MAMMO SCREENING EXAM: MAMMO SCREENING CLINICAL HISTORY: screening TECHNIQUE: Mammograms were interpreted according to the usual protocol including computer analysis w Selerity CAD system, tomosynthesis and C-view imaging. COMPARISON: 2014 through 2022 FINDINGS: The breasts are composed of heterogeneously dense fibroglandular densities, Breast Density category C . No suspicious masses or suspicious microcalcifications are seen. No skin thickening or abnormal axillary lymph nodes are seen. There has been no significant change from prior exams. IMPRESSION: BI-RADS Category 1, Negative mammogram. Yearly screening mammography is recommended. Breast Density Category C, heterogeneously Dense. The mammogram demonstrates the patient's breast tissue is dense. Dense breast tissue is very common a nd is not abnormal but dense breast tissue can make it harder to find cancer on a mammogram. Also, de nse breast tissue may increase breast cancer risk. This information about the result of the mammogram report was provided to the patient to raise their awareness. Use this report when you speak with the patient about their risks for breast cancer, which includes their family history. At that time, you may recommend additional screening tests (Ultrasound or MRI) as they might be useful based on their r isk. A negative radiographic report should not delay biopsy if a dominant or clinically suspicious mass is present. Up to ten percent of cancers are not identified on mammography. A negative report may reinforce clinical impression. Adenosis and dense breasts may obscure an underlying neoplasm. False positive reports average 6 to 10%.
== END 2024-04-17 02:03 ==
LOC: DI 01:44
PROVIDERS: PCP Internal Medicine; Visit Provider Nurse Practitioner Women's Health
DX: Z12.31 Encounter for screening mammogram for malignant neoplasm of breast (principal); R92.333 Mammographic heterogeneous density, bilateral breasts
CPT/HCPCS: 77063; 77067